=== PATIENT | female | born 1985 ===

== ENCOUNTER 2017-03-09 00:24 | Observation (INO) | payer SELFPAY ==
[2017-03-09] MEDS ORDERED: Sodium Chloride 0.9% 2.5 ML Syringe FLUSH PRN (00:41)
[2017-03-09] MEDS ORDERED: Ondansetron 4 MG/2 ML SDV IVPUSH ONE (00:41)
[2017-03-09] MEDS ORDERED: HYDROmorphone 2 MG/ML Syringe IVPUSH ONE ×2 (00:41→01:19)
[2017-03-09] MEDS ORDERED: Sodium Chloride 0.9% 10 ML Syringe FLUSH PRN (00:41)
[2017-03-09] MEDS ORDERED: Sodium Chloride 0.9% 1,000 ML IV ONE (00:41)
--- NOTE | 2017-03-09 00:45 | EDM.PDOC ---
ED HPI GENERAL MEDICAL PROBLEM - General Chief Complaint: Flank Pain Stated Complaint: RIGHT ABDOMINAL PAIN AND BACK PAIN Time Seen by Provider: 03/09/17 00:36 - History of Present Illness INITIAL COMMENTS - FREE TEXT/NARRATIVE: HISTORY AND PHYSICAL: History of present illness: The patient is a 31-year-old female with no significant GI history and has had a history of ovarian cysts and an IUD in place for contraception and presents with right sided flank and right upper quadrant pain that started approximately 9 PM. Patient said she has had on-and-off pain for the last one month only a couple of times a month and has been trying to eat more healthfully. She says that she had severe pain 2 days ago and had nausea but no vomiting but it seemed to subside so she did not come in for evaluation. At 7 PM this evening the patient had pizza and earlier today she had [employer] which is unusual for her and the pain started at 9 PM and is both in her right upper quadrant and her right flank area. She has no right lower quadrant tenderness or pain no dysuria frequency or hematuria. She has nausea but no vomiting and has not had any diarrhea. Patient also denies any fevers either tonight or throughout the course of this illness. The patient states she does have right back plane but it is not near the CVA and is more in the upper lumbar region. Patient last ate a piece of cake at approximately 11 PM. The patient denies any recent history of heartburn and has no epigastric discomfort or chest pain. Review of systems: As per history of present illness and below otherwise all systems reviewed and negative. Past medical history: As per history of present illness and as reviewed below otherwise noncontributory. Surgical history: As per history of present illness and as reviewed below otherwise noncontributory. Social history: No reported history of drug or alcohol abuse. Family history: As per history of present illness and as reviewed below otherwise noncontributory. Physical exam: Gen.: Well-developed well-nourished female who is nontoxic and vital signs of been reviewed by me HEENT: Atraumatic, normocephalic, pupils reactive, negative for conjunctival pallor or scleral icterus, mucous membranes tacky throat clear, neck supple, nontender, trachea midline Lungs: Clear to auscultation, breath sounds equal bilaterally, chest nontender. Heart: S1S2, regular rate and rhythm no overt murmurs Abdomen: Soft, nondistended, reproducible tenderness in the right upper quadrant without rebound or guarding, bowel sounds are hypoactive Negative for masses or hepatosplenomegaly. Negative for costovertebral tenderness. Pelvis: Stable nontender. Genitourinary: Deferred. Rectal: Deferred. Extremities: Atraumatic, negative for cords or calf pain. Neurovascular unremarkable. Neuro: Awake, alert, oriented. Cranial nerves II through XII unremarkable. Cerebellum unremarkable. Motor and sensory unremarkable throughout. Exam nonfocal. Diagnostics: CBC CMP amylase lipase UA UCG CT scan of the abdomen and pelvis Therapeutics: IV fluids Zofran Dilaudid Levaquin 0235: On reevaluation the patient subjectively states that her pain is improved palpate the right upper quadrant she is still exquisitely tender without rebound or involuntary guarding. The remainder the abdomen is nontender. She is aware of all testing results and is agreeable for observation pending a discussion with the surgeon on-call. 0240: Case was discussed with surgery, Dr. Balderas, who is aware of the case and agrees to observation admission. He requests a dose of Levaquin to be given Impression: Right upper quadrant pain, cholelithiasis rule out cholecystitis Definitive disposition and diagnosis as appropriate pending reevaluation and review of above. right flank Pain Score (Numeric/FACES): 6 - Related Data Allergies Allergy/AdvReac Type Severity Reaction Status Date / Time Penicillins Allergy Anaphylactic Verified 03/09/17 00:38 Shock Home Meds: Home Meds Intra Uterine Device 03/09/17 [History] ED ROS GENERAL - Review of Systems Review Of Systems: ROS reveals no pertinent complaints other than HPI. ED EXAM, GENERAL - Physical Exam Exam: See Below (See dictation) Course - Vital Signs Last Recorded V/S: Last Vital Signs Temp 36.1 C 03/09/17 00:40 Pulse 96 03/09/17 00:40 Resp 18 03/09/17 00:40 BP 128/85 03/09/17 00:40 Pulse Ox 99 03/09/17 00:40 - Orders/Labs/Meds Orders: Active Orders 24 hr Category Date Time Status Patient Status [ADT] Stat ADT 03/09/17 02:41 Ordered Abdomen Pelvis w Cont [CT] Stat Exams 03/09/17 00:41 Taken Lactated Ringers @ 150 MLS/HR(1,000ml) Med 03/09/17 02:45 Ordered Lactated Ringers [Ringers, Lactated] 1,000 ml IV ASDIRECTED Levofloxacin/Dextrose 5%-Water [Levaquin in D5W 500 MG/ Med 03/09/17 02:41 Ordered 100 ML] 500 mg Premix Bag 1 bag IV ONETIME Sodium Chloride 0.9% [Saline Flush] Med 03/09/17 00:41 Active 10 ml FLUSH ASDIRECTED PRN Sodium Chloride 0.9% [Saline Flush] Med 03/09/17 00:41 Active 2.5 ml FLUSH ASDIRECTED PRN Saline Lock Insert [OM.PC] Stat Oth 03/09/17 00:40 Ordered Medication Orders Sodium Chloride (Saline Flush) 10 ml FLUSH ASDIRECTED PRN PRN Reason: Keep Vein Open Last Admin: 03/09/17 01:03 Dose: 10 ml Sodium Chloride (Saline Flush) 2.5 ml FLUSH ASDIRECTED PRN PRN Reason: Keep Vein Open Last Admin: 03/09/17 01:03 Dose: 2.5 ml Labs: Laboratory Tests 03/09/17 03/09/17 03/09/17 Range/Units 00:45 00:45 00:52 WBC 8.88 (4.0-11.0) K/uL RBC 4.77 (4.30-5.90) M/uL Hgb 14.4 (12.0-16.0) g/dL Hct 42.6 (36.0-46.0) % MCV 89.3 (80.0-98.0) fL MCH 30.2 (27.0-32.0) pg MCHC 33.8 (31.0-37.0) g/dL RDW Std Deviation 41.9 (28.0-62.0) fl RDW Coeff of Luciano 13 (11.0-15.0) % Plt Count 280 (150-400) K/uL MPV 9.70 (7.40-12.00) fL Neut % (Auto) 53.9 (48.0-80.0) % Lymph % (Auto) 33.8 (16.0-40.0) % [place] % (Auto) 9.7 (0.0-15.0) % Eos % (Auto) 2.1 (0.0-7.0) % Baso % (Auto) 0.5 (0.0-1.5) % Neut # (Auto) 4.8 (1.4-5.7) K/uL Lymph # (Auto) 3.0 H (0.6-2.4) K/uL [place] # (Auto) 0.9 H (0.0-0.8) K/uL Eos # (Auto) 0.2 (0.0-0.7) K/uL Baso # (Auto) 0.0 (0.0-0.1) K/uL Sodium (136-146) mmol/L Potassium (3.5-5.1) mmol/L Chloride (98-110) mmol/L Carbon Dioxide (21-31) mmol/L BUN (6.0-23.0) mg/dL Creatinine (0.6-1.5) mg/dL Est Cr Clr Drug Dosing mL/min Estimated GFR (MDRD) ml/min Glucose (60-110) mg/dL Calcium (8.8-10.8) mg/dL Total Bilirubin (0.1-1.5) mg/dL AST (5-40) IU/L ALT (8-54) IU/L Alkaline Phosphatase (40-150) Total Protein (6.0-8.0) g/dL Albumin (3.5-5.0) g/dL Globulin (2.0-3.5) g/dL Albumin/Globulin Ratio (1.3-2.8) Amylase (10-90) U/L Lipase (7-80) U/L Urine Color YELLOW Urine Appearance CLEAR Urine pH 7.0 (5.0-8.0) Ur Specific Jackson 1.020 (1.001-1.035) Urine Protein NEGATIVE (NEGATIVE) mg/dL Urine Glucose (UA) NEGATIVE (NEGATIVE) mg/dL Urine Ketones NEGATIVE (NEGATIVE) mg/dL Urine Occult Blood NEGATIVE (NEGATIVE) Urine Nitrite NEGATIVE (NEGATIVE) Urine Bilirubin NEGATIVE (NEGATIVE) Urine Urobilinogen 0.2 (<2.0) EU/dL Ur Leukocyte Esterase NEGATIVE (NEGATIVE) Urine RBC 0-2 (0-2/HPF) Urine WBC 2-4 (0-5/HPF) Ur Epithelial Cells OCCASIONAL (NONE-FEW) Urine Bacteria FEW (NEGATIVE) Urine Mucus FEW (NONE-MOD) Urine HCG, Qual NEGATIVE (NEGATIVE) 03/09/17 Range/Units 00:52 WBC (4.0-11.0) K/uL RBC (4.30-5.90) M/uL Hgb (12.0-16.0) g/dL Hct (36.0-46.0) % MCV (80.0-98.0) fL MCH (27.0-32.0) pg MCHC (31.0-37.0) g/dL RDW Std Deviation (28.0-62.0) fl RDW Coeff of Luciano (11.0-15.0) % Plt Count (150-400) K/uL MPV (7.40-12.00) fL Neut % (Auto) (48.0-80.0) % Lymph % (Auto) (16.0-40.0) % [place] % (Auto) (0.0-15.0) % Eos % (Auto) (0.0-7.0) % Baso % (Auto) (0.0-1.5) % Neut # (Auto) (1.4-5.7) K/uL Lymph # (Auto) (0.6-2.4) K/uL [place] # (Auto) (0.0-0.8) K/uL Eos # (Auto) (0.0-0.7) K/uL Baso # (Auto) (0.0-0.1) K/uL Sodium 138 (136-146) mmol/L Potassium 4.0 (3.5-5.1) mmol/L Chloride 108 (98-110) mmol/L Carbon Dioxide 21 (21-31) mmol/L BUN 11 (6.0-23.0) mg/dL Creatinine 0.8 (0.6-1.5) mg/dL Est Cr Clr Drug Dosing 90.00 mL/min Estimated GFR (MDRD) > 60.0 ml/min Glucose 130 H (60-110) mg/dL Calcium 9.7 (8.8-10.8) mg/dL Total Bilirubin 0.3 (0.1-1.5) mg/dL AST 22 (5-40) IU/L ALT 37 (8-54) IU/L Alkaline Phosphatase 60 (40-150) Total Protein 7.5 (6.0-8.0) g/dL Albumin 4.1 (3.5-5.0) g/dL Globulin 3.4 (2.0-3.5) g/dL Albumin/Globulin Ratio 1.2 L (1.3-2.8) Amylase 59 (10-90) U/L Lipase 50 (7-80) U/L Urine Color Urine Appearance Urine pH (5.0-8.0) Ur Specific Jackson (1.001-1.035) Urine Protein (NEGATIVE) mg/dL Urine Glucose (UA) (NEGATIVE) mg/dL Urine Ketones (NEGATIVE) mg/dL Urine Occult Blood (NEGATIVE) Urine Nitrite (NEGATIVE) Urine Bilirubin (NEGATIVE) Urine Urobilinogen (<2.0) EU/dL Ur Leukocyte Esterase (NEGATIVE) Urine RBC (0-2/HPF) Urine WBC (0-5/HPF) Ur Epithelial Cells (NONE-FEW) Urine Bacteria (NEGATIVE) Urine Mucus (NONE-MOD) Urine HCG, Qual (NEGATIVE) Meds: Medications Generic Name Dose Route Start Last Admin Trade Name Freq PRN Reason Stop Dose Admin Sodium Chloride 10 ml 03/09/17 00:41 03/09/17 01:03 Saline Flush FLUSH 10 ml ASDIRECTED PRN Administration Keep Vein Open Sodium Chloride 2.5 ml 03/09/17 00:41 03/09/17 01:03 Saline Flush FLUSH 2.5 ml ASDIRECTED PRN Administration Keep Vein Open Discontinued Medications Generic Name Dose Route Start Last Admin Trade Name Freq PRN Reason Stop Dose Admin Hydromorphone HCl 1 mg 03/09/17 00:41 03/09/17 01:02 Dilaudid IVPUSH 03/09/17 00:42 1 mg ONETIME ONE Administration Hydromorphone HCl 1 mg 03/09/17 01:19 03/09/17 01:27 Dilaudid IVPUSH 03/09/17 01:20 1 mg ONETIME ONE Administration Sodium Chloride 1,000 mls @ 999 mls/hr 03/09/17 00:41 03/09/17 01:00 Normal Saline IV 03/09/17 01:41 999 mls/hr STAT ONE Administration Iopamidol 100 ml 03/09/17 01:50 03/09/17 01:51 Isovue Multipack-370 (76%) IVPUSH 03/09/17 01:51 100 ml ONETIME STA Administration Ondansetron HCl 4 mg 03/09/17 00:41 03/09/17 01:02 Zofran IVPUSH 03/09/17 00:42 4 mg ONETIME ONE Administration Departure - Departure Time of Disposition: 02:44 Disposition: Refer to Observation Condition: Good, Fair Clinical Impression: Abdominal pain Qualifiers: Abdominal location: right upper quadrant Qualified Code(s): R10.11 - Right upper quadrant pain Cholelithiasis Qualifiers: Cholelithiasis location: gallbladder Cholecystitis presence: with cholecystitis Cholecystitis acuity: acute Biliary obstruction: without biliary obstruction Qualified Code(s): K80.00 - Calculus of gallbladder with acute cholecystitis without obstruction - Discharge Information Referrals: PCP,None [Primary Care Provider] - Forms: ED Department Discharge - My Orders Last 24 Hours: My Active Orders 03/09/17 00:40 Saline Lock Insert [OM.PC] Stat 03/09/17 00:41 Abdomen Pelvis w Cont [CT] Stat Sodium Chloride 0.9% [Saline Flush] 10 ml FLUSH ASDIRECTED PRN Sodium Chloride 0.9% [Saline Flush] 2.5 ml FLUSH ASDIRECTED PRN 03/09/17 02:41 Patient Status [ADT] Stat Levofloxacin/Dextrose 5%-Water [Levaquin in D5W 500 MG/100 ML] 500 mg Premix Bag 1 bag IV ONETIME 03/09/17 02:45 Lactated Ringers @ 150 MLS/HR(1,000ml) Lactated Ringers [Ringers, Lactated] 1, 000 ml IV ASDIRECTED - Assessment/Plan Last 24 Hours: My Active Orders 03/09/17 00:40 Saline Lock Insert [OM.PC] Stat 03/09/17 00:41 Abdomen Pelvis w Cont [CT] Stat Sodium Chloride 0.9% [Saline Flush] 10 ml FLUSH ASDIRECTED PRN Sodium Chloride 0.9% [Saline Flush] 2.5 ml FLUSH ASDIRECTED PRN 03/09/17 02:41 Patient Status [ADT] Stat Levofloxacin/Dextrose 5%-Water [Levaquin in D5W 500 MG/100 ML] 500 mg Premix Bag 1 bag IV ONETIME 03/09/17 02:45 Lactated Ringers @ 150 MLS/HR(1,000ml) Lactated Ringers [Ringers, Lactated] 1, 000 ml IV ASDIRECTED
[2017-03-09 01:22] LABS: CHLORIDE,CL 108 mmol/L (98-110); SODIUM,NA 138 mmol/L (136-146)
[2017-03-09] MEDS ORDERED: Iopamidol 755 MG/ML 500 ML Multipack Bottle IVPUSH STA (01:50)
[2017-03-09] MEDS ORDERED: Levofloxacin/Dextrose 5%-Water 500 MG in Premix Bag 1 BAG IV ONE (02:41)
[2017-03-09] MEDS ORDERED: Lactated Ringers 1,000 ML IV SCH ×2 (02:45→03:30)
[2017-03-09] MEDS ORDERED: Ondansetron 4 MG/2 ML SDV IVPUSH PRN (03:17)
[2017-03-09] MEDS: Morphine 2 MG/ML Syringe IVPUSH PRN ×2 (04:13→08:14)
[2017-03-09] MEDS: Pantoprazole 40 MG in Sodium Chloride 0.9% 10 ML IVPUSH SCH ×2 (04:13→08:27)
[2017-03-09] MEDS ORDERED: Nicotine 14 MG/24 Hr Patch TRDERM SCH (04:30)
[2017-03-09 06:39] LABS: CHLORIDE,CL 108 mmol/L (98-110); SODIUM,NA 138 mmol/L (136-146)
[2017-03-09] MEDS ORDERED: Acetaminophen/oxyCODONE 325-5 MG Tab PO ONE (11:05)
--- NOTE | 2017-03-09 11:11 | PCM.SN ---
- Free Text/Narrative Note: pt seen, chart reviewed; home on abx and pain meds; fu as scheduled; [id number]
--- NOTE | 2017-03-09 11:53 | CONS ---
DATE OF CONSULTATION: 03/09/2017 DATE OF : 1985 PRIMARY CARE PHYSICIAN: None PCP Consult from Dr. Mary Beth Naik. CONCERNING QUESTION: Abdominal pain. HISTORY OF PRESENT ILLNESS: The patient is a 31-year-old lady known to have gallstone and had a piece of large pizza and the pain is 10/10, which drove her to the emergency room. The patient remarked that she has known history of gallstones and she has this kind of pain on and off for many weeks and was getting worse 2 days ago. Every time, it is postprandial in nature, epigastrium, radiated to the back through the right flank and through the right shoulder. Denied jaundice, dark urine, white stool, and blood in her stool. PAST MEDICAL HISTORY: Significant for no diabetes, [place], CVA, or hypertension. PAST SURGICAL HISTORY: Normal vaginal delivery x2. No other abdominal surgery. ALLERGIES: Please refer to nursing note for detail. MEDICATIONS: Please refer to nursing note for detail. PHYSICAL EXAMINATION: GENERAL: A very pleasant lady in no acute distress. HEENT: Normocephalic, atraumatic. Sclerae anicteric. LUNGS: Clear to auscultation. HEART: Regular rate and rhythm. ABDOMEN: Soft, nondistended. No pulsating, tender, midline abdominal structure. A small umbilical hernia noted. Skin, intact. Tender at the right upper quadrant. No rebound tenderness. No surgical scar. LABORATORY DATA: Upon consultation, white count of 7. BUN is 9, creatinine is 0.8, and glucose is 118. Total bilirubin is 0.4. AST and ALT at 20 and 33 within normal limits. Alkaline phosphatase is 50. Amylase and lipase are normal at 49 and 39. UA shows no signs infection. Gallbladder shows stone. IMPRESSION: Symptomatic cholelithiasis, will benefit from a modified diet, avoid greasy fatty foods, and followup in 1-2 weeks in my office. The patient requested to follow up in 6 weeks because of her home situation and that is all right. Gave the patient the idea about gallstone, could be pushed out with greasy food and may require more than one surgery, the patient is aware and nursing staff will set up for appointment in 6 weeks. For the time being, the patient will be treated with antibiotic, pain medication, and modified diet. The patient is aware. As always, thank you for the kind referral. LIARAMA / MODL /[id number]
[2017-03-10] MEDS ORDERED: Levofloxacin/Dextrose 5%-Water 750 MG in Premix Bag 1 BAG IV SCH (03:00)
--- NOTE | 2017-03-10 11:42 | CT ---
EXAM DATE: 03/09/17 PATIENT'S AGE: 31 Patient: MADAN HOLMAN Facility: [place], [place] : 1985 Study: CT Abdomen/Pelvis [id number] 1:54:12 AM Ordering Physician: BETTY Final Report: INDICATION: Abdominal pain. TECHNIQUE: CT abdomen and pelvis acquired with 100 mL of Isovue 370 IV contrast. COMPARISON: None. FINDINGS: Lower chest: Unremarkable. Liver: Unremarkable. Spleen: 2 cm low density lesion is of doubtful clinical significance. Pancreas: Unremarkable. Gallbladder and bile ducts: Cholelithiasis. Mild wall thickening and enhancement of the gallbladder. The common bile duct measures 6 mm. No definite bile duct stone demonstrated. Kidneys: Too small to characterize low-density lesion on the right likely represents a cyst. Bilateral kidneys are otherwise unremarkable. No hydronephrosis. A Adrenal glands: Unremarkable. GI tract: Unremarkable. Appendix is normal. No free air or free fluid. Vascular structures: Unremarkable. Lymph nodes: Unremarkable. Pelvic Organs: Intrauterine device appears appropriately positioned. Bladder and bilateral adnexal regions are unremarkable. Bones: No acute abnormality. IMPRESSION: Cholelithiasis with additional findings worrisome for early acute cholecystitis. Dictated by Sigifredo White MD @ 03/09/2017 2:24:03 AM Dictated by: Sigifredo White MD @ 03/09/2017 02:24:26 ----- ADDENDUM ----- IMPRESSION: Discussed with Dr. Naik at approximately 2:30 a.m. on 03/09/2017. Dictated by Sigifredo White MD @ Mar 09 2017 7:05AM (Electronic Signature) Report Signed by Proxy. JOSE G
== END 2017-03-09 11:50 | disposition home or self-care (01) ==
LOC: MW.ED 00:24 → MW.MS 02:41
PROVIDERS: ADMIT Surgery; ATTEND Surgery
DX: K80.20 Calculus of gallbladder without cholecystitis without obstruction (principal)
CPT/HCPCS: 36415; 74177; 80053; 81001; 81025; 82150; 83690; 85025; 96361; 96365; 96368; 96375; 96376; 99285; A9270; C9113; G0378; J1170; J1956; J2270; J2405; J7040; J7120; Q9967; 99284

== ENCOUNTER 2017-03-13 05:23 | Emergency (ER) | payer SELFPAY ==
[2017-03-13] MEDS ORDERED: Ketorolac 30 MG/ML SDV IVPUSH ONE (05:32)
[2017-03-13] MEDS ORDERED: Ondansetron 4 MG/2 ML SDV IVPUSH ONE (05:32)
[2017-03-13] MEDS ORDERED: Sodium Chloride 0.9% 1,000 ML IV SCH (05:45)
[2017-03-13] MEDS ORDERED: Sodium Chloride 0.9% 250 ML IV SCH (05:45)
[2017-03-13 06:10] LABS: CHLORIDE,CL 107 mmol/L (98-110); SODIUM,NA 135 mmol/L (136-146)
--- NOTE | 2017-03-13 07:06 | EDM.PDOC ---
ED HPI GENERAL MEDICAL PROBLEM - General Chief Complaint: Abdominal Pain Stated Complaint: ABDOMINAL PAIN, GALLBLADDER ISSUES Time Seen by Provider: 03/13/17 06:55 - History of Present Illness INITIAL COMMENTS - FREE TEXT/NARRATIVE: HISTORY AND PHYSICAL: History of present illness: Patient 31-year-old white female was seen on 10:15 and diagnosed with cholecystitis she is put on Levaquin she was seen by general surgery in the emergency department Dr. Balderas who returns today with abdominal pain nausea denies vomiting denies fever or chills states pain is been worsening. Review of systems: As per history of present illness and below otherwise all systems reviewed and negative. Past medical history: As per history of present illness and as reviewed below otherwise noncontributory. Surgical history: As per history of present illness and as reviewed below otherwise noncontributory. Social history: No reported history of drug or alcohol abuse. Family history: As per history of present illness and as reviewed below otherwise noncontributory. Physical exam: HEENT: Atraumatic, normocephalic, pupils reactive, negative for conjunctival pallor or scleral icterus, mucous membranes moist, throat clear, neck supple, nontender, trachea midline. Lungs: Clear to auscultation, breath sounds equal bilaterally, chest nontender. Heart: S1S2, regular, negative for clicks, rubs, or JVD. Abdomen: Soft, nondistended, localized tenderness right upper quadrant with guarding.. Negative for masses or hepatosplenomegaly. Negative for costovertebral tenderness. Pelvis: Stable nontender. Genitourinary: Deferred. Rectal: Deferred. Extremities: Atraumatic, negative for cords or calf pain. Neurovascular unremarkable. Neuro: Awake, alert, oriented. Cranial nerves II through XII unremarkable. Cerebellum unremarkable. Motor and sensory unremarkable throughout. Exam nonfocal. Diagnostics: CBC CMP UA ultrasound right upper quadrant Therapeutics: Normal saline 1 L bolus and Toradol 30 mg IV Zofran 4 mg IV Impression: #1 abdominal pain/cholelithiasis Definitive disposition and diagnosis as appropriate pending reevaluation and review of above. Treatments METHOD CONSULTANT: Reports: IV/IO Abdomen Pain Score (Numeric/FACES): 8 - Related Data Allergies Allergy/AdvReac Type Severity Reaction Status Date / Time Penicillins Allergy Anaphylactic Verified 03/13/17 05:27 Shock Home Meds: Home Meds Acetaminophen/oxyCODONE [Percocet 325-5 MG] 1 tab PO Q6H PRN #30 tablet [Rx] Intra Uterine Device 03/09/17 [History] Levofloxacin [Levaquin] 750 mg PO DAILY 4 Days #4 tablet 03/09/17 [Rx] Past Medical History HEENT History: Reports: None, 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) Other HEENT History: wears contacts Cardiovascular History: Reports: None Respiratory History: Reports: None Gastrointestinal History: Reports: Cholelithiasis Genitourinary History: Reports: UTI, Recurrent 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: , 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) Other OB/BYN History: IUD Musculoskeletal History: Reports: None Neurological History: Reports: Migraines Psychiatric History: Reports: Anxiety, Depression Endocrine/Metabolic History: Reports: Hypothyroidism Hematologic History: Reports: None Immunologic History: Reports: None Oncologic (Cancer) History: Reports: None Dermatologic History: Reports: None - Infectious Disease History Infectious Disease History: Reports: Chicken Pox - Past Surgical History Female Surgical History: Reports: None Other Female Surgeries/Procedures: ovarian cyst Musculoskeletal Surgical History: Reports: None Social & Family History - Family History Family Medical History: Noncontributory - Tobacco Use Smoking Status *Q: Current Every Day Smoker Years of Tobacco use: 10 Packs/Tins Daily: 1 Second Hand Smoke Exposure: No - Caffeine Use Caffeine Use: Reports: Coffee, Soda - Recreational Drug Use Recreational Drug Use: No ED ROS GENERAL - Review of Systems Review Of Systems: ROS reveals no pertinent complaints other than HPI. ED EXAM, GENERAL - Physical Exam Exam: See Below (See dictation) Course - Vital Signs Last Recorded V/S: Last Vital Signs Temp 36.3 C 03/13/17 05:27 Pulse 102 H 03/13/17 05:27 Resp 18 03/13/17 05:27 BP 139/87 03/13/17 05:27 Pulse Ox 98 03/13/17 05:27 - Orders/Labs/Meds Orders: Active Orders 24 hr Category Date Time Status Abdomen Ltd [US] Stat Exams 03/13/17 05:32 Taken Sodium Chloride 0.9% [Normal Saline] 1,000 ml Med 03/13/17 05:45 Active IV ASDIRECTED Medication Orders Sodium Chloride (Normal Saline) 1,000 mls @ 999 mls/hr IV ASDIRECTED ELISEO Last Admin: 03/13/17 05:45 Dose: 999 mls/hr Labs: Laboratory Tests 03/13/17 03/13/17 03/13/17 Range/Units 05:32 05:32 05:36 WBC 8.57 (4.0-11.0) K/uL RBC 4.60 (4.30-5.90) M/uL Hgb 13.8 (12.0-16.0) g/dL Hct 40.5 (36.0-46.0) % MCV 88.0 (80.0-98.0) fL MCH 30.0 (27.0-32.0) pg MCHC 34.1 (31.0-37.0) g/dL RDW Std Deviation 43.0 (28.0-62.0) fl RDW Coeff of Luciano 13 (11.0-15.0) % Plt Count 237 (150-400) K/uL MPV 9.80 (7.40-12.00) fL Neut % (Auto) 62.5 (48.0-80.0) % Lymph % (Auto) 28.9 (16.0-40.0) % [place] % (Auto) 6.8 (0.0-15.0) % Eos % (Auto) 1.4 (0.0-7.0) % Baso % (Auto) 0.4 (0.0-1.5) % Neut # (Auto) 5.4 (1.4-5.7) K/uL Lymph # (Auto) 2.5 H (0.6-2.4) K/uL [place] # (Auto) 0.6 (0.0-0.8) K/uL Eos # (Auto) 0.1 (0.0-0.7) K/uL Baso # (Auto) 0.0 (0.0-0.1) K/uL Nucleated RBC % 0.0 /100WBC Nucleated RBCs # 0 K/uL Sodium 135 L (136-146) mmol/L Potassium 3.4 L (3.5-5.1) mmol/L Chloride 107 (98-110) mmol/L Carbon Dioxide 22 (21-31) mmol/L BUN 9 (6.0-23.0) mg/dL Creatinine 0.8 (0.6-1.5) mg/dL Est Cr Clr Drug Dosing 90.00 mL/min Estimated GFR (MDRD) > 60.0 ml/min Glucose 146 H (60-110) mg/dL Calcium 9.1 (8.8-10.8) mg/dL Total Bilirubin 0.4 (0.1-1.5) mg/dL AST 28 (5-40) IU/L ALT 45 (8-54) IU/L Alkaline Phosphatase 49 (40-150) Total Protein 6.7 (6.0-8.0) g/dL Albumin 3.7 (3.5-5.0) g/dL Globulin 3.0 (2.0-3.5) g/dL Albumin/Globulin Ratio 1.2 L (1.3-2.8) Urine Color YELLOW Urine Appearance SLT CLOUDY Urine pH 5.5 (5.0-8.0) Ur Specific [place] >= 1.030 (1.001-1.035) Urine Protein 100 (NEGATIVE) mg/dL Urine Glucose (UA) NEGATIVE (NEGATIVE) mg/dL Urine Ketones TRACE H (NEGATIVE) mg/dL Urine Occult Blood NEGATIVE (NEGATIVE) Urine Nitrite NEGATIVE (NEGATIVE) Urine Bilirubin NEGATIVE (NEGATIVE) Urine Urobilinogen 0.2 (<2.0) EU/dL Ur Leukocyte Esterase NEGATIVE (NEGATIVE) Urine RBC 0-2 (0-2/HPF) Urine WBC 4-6 (0-5/HPF) Ur Epithelial Cells MODERATE (NONE-FEW) Urine Bacteria FEW (NEGATIVE) Urine Mucus MODERATE (NONE-MOD) Urine HCG, Qual (NEGATIVE) 03/13/17 Range/Units 05:36 WBC (4.0-11.0) K/uL RBC (4.30-5.90) M/uL Hgb (12.0-16.0) g/dL Hct (36.0-46.0) % MCV (80.0-98.0) fL MCH (27.0-32.0) pg MCHC (31.0-37.0) g/dL RDW Std Deviation (28.0-62.0) fl RDW Coeff of [place]iano (11.0-15.0) % Plt Count (150-400) K/uL MPV (7.40-12.00) fL Neut % (Auto) (48.0-80.0) % Lymph % (Auto) (16.0-40.0) % [place] % (Auto) (0.0-15.0) % Eos % (Auto) (0.0-7.0) % Baso % (Auto) (0.0-1.5) % Neut # (Auto) (1.4-5.7) K/uL Lymph # (Auto) (0.6-2.4) K/uL [place] # (Auto) (0.0-0.8) K/uL Eos # (Auto) (0.0-0.7) K/uL Baso # (Auto) (0.0-0.1) K/uL Nucleated RBC % /100WBC Nucleated RBCs # K/uL Sodium (136-146) mmol/L Potassium (3.5-5.1) mmol/L Chloride (98-110) mmol/L Carbon Dioxide (21-31) mmol/L BUN (6.0-23.0) mg/dL Creatinine (0.6-1.5) mg/dL Est Cr Clr Drug Dosing mL/min Estimated GFR (MDRD) ml/min Glucose (60-110) mg/dL Calcium (8.8-10.8) mg/dL Total Bilirubin (0.1-1.5) mg/dL AST (5-40) IU/L ALT (8-54) IU/L Alkaline Phosphatase (40-150) Total Protein (6.0-8.0) g/dL Albumin (3.5-5.0) g/dL Globulin (2.0-3.5) g/dL Albumin/Globulin Ratio (1.3-2.8) Urine Color Urine Appearance Urine pH (5.0-8.0) Ur Specific [place] (1.001-1.035) Urine Protein (NEGATIVE) mg/dL Urine Glucose (UA) (NEGATIVE) mg/dL Urine Ketones (NEGATIVE) mg/dL Urine Occult Blood (NEGATIVE) Urine Nitrite (NEGATIVE) Urine Bilirubin (NEGATIVE) Urine Urobilinogen (<2.0) EU/dL Ur Leukocyte Esterase (NEGATIVE) Urine RBC (0-2/HPF) Urine WBC (0-5/HPF) Ur Epithelial Cells (NONE-FEW) Urine Bacteria (NEGATIVE) Urine Mucus (NONE-MOD) Urine HCG, Qual NEGATIVE (NEGATIVE) Meds: Medications Generic Name Dose Route Start Last Admin Trade Name Carla PRN Reason Stop Dose Admin Sodium Chloride 1,000 mls @ 999 mls/hr 03/13/17 05:45 03/13/17 05:45 Normal Saline IV 999 mls/hr ASDIRECTED ELISEO Administration Discontinued Medications Generic Name Dose Route Start Last Admin Trade Name Carla PRN Reason Stop Dose Admin Sodium Chloride 250 mls @ 999 mls/hr 03/13/17 05:45 Normal Saline IV ASDIRECTED ELISEO Ketorolac Tromethamine 30 mg 03/13/17 05:32 03/13/17 05:43 Toradol IVPUSH 03/13/17 05:33 30 mg ONETIME ONE Administration Ondansetron HCl 4 mg 03/13/17 05:32 03/13/17 05:43 Zofran IVPUSH 03/13/17 05:33 4 mg ONETIME ONE Administration Departure - Departure Time of Disposition: 07:07 Disposition: Refer to Observation Condition: Good Clinical Impression: Abdominal pain Qualifiers: Abdominal location: right upper quadrant Qualified Code(s): R10.11 - Right upper quadrant pain Cholelithiasis Qualifiers: Cholelithiasis location: gallbladder Cholecystitis presence: with cholecystitis Cholecystitis acuity: acute Biliary obstruction: without biliary obstruction Qualified Code(s): K80.00 - Calculus of gallbladder with acute cholecystitis without obstruction - Discharge Information Referrals: PCP,None [Primary Care Provider] - - My Orders Last 24 Hours: My Active Orders 03/13/17 05:32 Abdomen Ltd [US] Stat 03/13/17 05:45 Sodium Chloride 0.9% [Normal Saline] 1,000 ml IV ASDIRECTED - Assessment/Plan Last 24 Hours: My Active Orders 03/13/17 05:32 Abdomen Ltd [US] Stat 03/13/17 05:45 Sodium Chloride 0.9% [Normal Saline] 1,000 ml IV ASDIRECTED
--- NOTE | 2017-03-13 10:58 | US ---
EXAM DATE: 03/13/17 PATIENT'S AGE: 31 Patient: MADAN HOLMAN Facility: [place], [place] Site . Site : 1985 Study: US Abdomen [id number] 6:35:27 AM Ordering Physician: Doctor Lawrence Final Report: INDICATION: Right upper quadrant pain COMPARISON: none TECHNIQUE: Real time mosquera scale imaging and color Doppler analysis was performed of the right upper quadrant. FINDINGS: The patient`s liver is of normal size and has uniform echogenicity. There is a normal appearance of the hepatic IVC and proximal abdominal aorta. There is no evidence of ascites. The pancreatic body appears normal. The pancreatic head and tail were obscured by bowel gas. Stones are noted within the gallbladder lumen measuring up to 17 mm in size. However, there is no evidence of edema within the gallbladder wall and the hollock maker performing the exam, noted that the patient was not focally tender over the gallbladder. The gallbladder wall measures 1.8 mm in thickness. The common bile duct is generous and measures 7.5 mm in diameter at the level of the miki hepatis. The distal duct and pancreatic head were obscured. The right kidney measures cm in length. There is no evidence of a stone or hydronephrosis within the right kidney. IMPRESSION: Cholelithiasis and mild dilation of the common bile duct which would raise a concern for potential choledocholithiasis. No evidence of acute inflammation within the gallbladder wall. Dictated by Deuce Finn MD @ Mar 13 2017 6:36AM (Electronic Signature) Report Signed by Proxy. JOSE G
--- NOTE | 2017-03-13 12:21 | PCM.CONS ---
H&P History of Present Illness - General Date of Service: 03/13/17 Admit Problem/Dx: Admission Diagnosis/Problem Admission Diagnosis/Problem Abdominal pain Source of Information: Patient History Limitations: Reports: No Limitations - History of Present Illness Onset of Symptoms: Reports: Today Location: Reports: Abdomen Quality: Reports: Pressure, Stabbing Severity: Moderate Improves with: Reports: Rest Worsens with: Reports: None Context: Reports: Sick Contact Associated Symptoms: Reports: Nausea/Vomiting Abdomen Pain Score (Numeric/FACES): 6 - Related Data Allergies/Adverse Reactions: Allergies Allergy/AdvReac Type Severity Reaction Status Date / Time Penicillins Allergy Anaphylactic Verified 03/13/17 05:27 Shock Home Medications: Home Meds Acetaminophen/oxyCODONE [Percocet 325-5 MG] 1 tab PO Q6H PRN #30 tablet [Rx] Intra Uterine Device 03/09/17 [History] Levofloxacin [Levaquin] 750 mg PO DAILY 4 Days #4 tablet 03/09/17 [Rx] Past Medical History HEENT History: Reports: None, 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) Other HEENT History: wears contacts Cardiovascular History: Reports: None Respiratory History: Reports: None Gastrointestinal History: Reports: Cholelithiasis Genitourinary History: Reports: UTI, Recurrent 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: , 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) Other OB/BYN History: IUD Musculoskeletal History: Reports: None Neurological History: Reports: Migraines Psychiatric History: Reports: Anxiety, Depression Endocrine/Metabolic History: Reports: Hypothyroidism Hematologic History: Reports: None Immunologic History: Reports: None Oncologic (Cancer) History: Reports: None Dermatologic History: Reports: None - Infectious Disease History Infectious Disease History: Reports: Chicken Pox - Past Surgical History Female Surgical History: Reports: None Other Female Surgeries/Procedures: ovarian cyst Musculoskeletal Surgical History: Reports: None Social & Family History - Family History Family Medical History: Noncontributory - Tobacco Use Smoking Status *Q: Current Every Day Smoker Years of Tobacco use: 10 Packs/Tins Daily: 1 Second Hand Smoke Exposure: No - Caffeine Use Caffeine Use: Reports: Coffee, Soda - Recreational Drug Use Recreational Drug Use: No H&P Review of Systems - Review of Systems: Review Of Systems: See Below General: Denies: Fever, Chills HEENT: Reports: No Symptoms Pulmonary: Denies: Shortness of Breath, Wheezing, Cough Cardiovascular: Denies: Chest Pain Gastrointestinal: Reports: Abdominal Pain, Anorexia, Decreased Appetite. Denies : Black Stool, Bloody Stool, Constipation, Diarrhea Genitourinary: Reports: No Symptoms Musculoskeletal: Reports: No Symptoms Skin: Reports: No Symptoms Psychiatric: Reports: No Symptoms Neurological: Reports: No Symptoms Hematologic/Lymphatic: Reports: No Symptoms Immunologic: Reports: No Symptoms Exam - Exam Exam: See Below - Vital Signs Vital Signs: Last Vital Signs Temp 97.4 F 03/13/17 05:27 Pulse 69 03/13/17 08:42 Resp 18 03/13/17 08:42 BP 101/64 03/13/17 08:42 Pulse Ox 98 03/13/17 08:42 Weight: 178 lb - Exam General: Alert, Oriented, Cooperative, Mild Distress HEENT: Conjunctiva Clear. No: Scleral Icterus Neck: Supple, Trachea Midline Lungs: Clear to Auscultation Cardiovascular: Regular Rate, Regular Rhythm. No: Tachycardia GI/Abdominal Exam: Normal Bowel Sounds, Soft, No Organomegaly, No Distention, No Mass, Distended, Tender (minimal RUQ tenderness). No: Guarding, Rigid, Rebound, Hernia, Mass (Female) Exam: Deferred Rectal (Female) Exam: Deferred Extremities: Normal Inspection, Normal Range of Motion Peripheral Pulses: 4+: Posterior Tibial (L), Posterior Tibial (R), Dorsalis Pedis (L), Dorsalis Pedis (R) Skin: Warm, Dry, Intact Neurological: Cranial Nerves Intact, Reflexes Equal Bilateral Psychiatric: Alert, Normal Affect, Normal Mood - Patient Data Lab Results Last 24 hrs: Laboratory Results - last 24 hr 03/13/17 03/13/17 03/13/17 Range/Units 05:32 05:32 05:36 WBC 8.57 (4.0-11.0) K/uL RBC 4.60 (4.30-5.90) M/uL Hgb 13.8 (12.0-16.0) g/dL Hct 40.5 (36.0-46.0) % MCV 88.0 (80.0-98.0) fL MCH 30.0 (27.0-32.0) pg MCHC 34.1 (31.0-37.0) g/dL RDW Std Deviation 43.0 (28.0-62.0) fl RDW Coeff of Luciano 13 (11.0-15.0) % Plt Count 237 (150-400) K/uL MPV 9.80 (7.40-12.00) fL Neut % (Auto) 62.5 (48.0-80.0) % Lymph % (Auto) 28.9 (16.0-40.0) % [place] % (Auto) 6.8 (0.0-15.0) % Eos % (Auto) 1.4 (0.0-7.0) % Baso % (Auto) 0.4 (0.0-1.5) % Neut # (Auto) 5.4 (1.4-5.7) K/uL Lymph # (Auto) 2.5 H (0.6-2.4) K/uL [place] # (Auto) 0.6 (0.0-0.8) K/uL Eos # (Auto) 0.1 (0.0-0.7) K/uL Baso # (Auto) 0.0 (0.0-0.1) K/uL Nucleated RBC % 0.0 /100WBC Nucleated RBCs # 0 K/uL Sodium 135 L (136-146) mmol/L Potassium 3.4 L (3.5-5.1) mmol/L Chloride 107 (98-110) mmol/L Carbon Dioxide 22 (21-31) mmol/L BUN 9 (6.0-23.0) mg/dL Creatinine 0.8 (0.6-1.5) mg/dL Est Cr Clr Drug Dosing 90.00 mL/min Estimated GFR (MDRD) > 60.0 ml/min Glucose 146 H (60-110) mg/dL Calcium 9.1 (8.8-10.8) mg/dL Total Bilirubin 0.4 (0.1-1.5) mg/dL AST 28 (5-40) IU/L ALT 45 (8-54) IU/L Alkaline Phosphatase 49 (40-150) Total Protein 6.7 (6.0-8.0) g/dL Albumin 3.7 (3.5-5.0) g/dL Globulin 3.0 (2.0-3.5) g/dL Albumin/Globulin Ratio 1.2 L (1.3-2.8) Urine Color YELLOW Urine Appearance SLT CLOUDY Urine pH 5.5 (5.0-8.0) Ur Specific [place] >= 1.030 (1.001-1.035) Urine Protein 100 (NEGATIVE) mg/dL Urine Glucose (UA) NEGATIVE (NEGATIVE) mg/dL Urine Ketones TRACE H (NEGATIVE) mg/dL Urine Occult Blood NEGATIVE (NEGATIVE) Urine Nitrite NEGATIVE (NEGATIVE) Urine Bilirubin NEGATIVE (NEGATIVE) Urine Urobilinogen 0.2 (<2.0) EU/dL Ur Leukocyte Esterase NEGATIVE (NEGATIVE) Urine RBC 0-2 (0-2/HPF) Urine WBC 4-6 (0-5/HPF) Ur Epithelial Cells MODERATE (NONE-FEW) Urine Bacteria FEW (NEGATIVE) Urine Mucus MODERATE (NONE-MOD) Urine HCG, Qual (NEGATIVE) 03/13/17 Range/Units 05:36 WBC (4.0-11.0) K/uL RBC (4.30-5.90) M/uL Hgb (12.0-16.0) g/dL Hct (36.0-46.0) % MCV (80.0-98.0) fL MCH (27.0-32.0) pg MCHC (31.0-37.0) g/dL RDW Std Deviation (28.0-62.0) fl RDW Coeff of Luciano (11.0-15.0) % Plt Count (150-400) K/uL MPV (7.40-12.00) fL Neut % (Auto) (48.0-80.0) % Lymph % (Auto) (16.0-40.0) % [place] % (Auto) (0.0-15.0) % Eos % (Auto) (0.0-7.0) % Baso % (Auto) (0.0-1.5) % Neut # (Auto) (1.4-5.7) K/uL Lymph # (Auto) (0.6-2.4) K/uL [place] # (Auto) (0.0-0.8) K/uL Eos # (Auto) (0.0-0.7) K/uL Baso # (Auto) (0.0-0.1) K/uL Nucleated RBC % /100WBC Nucleated RBCs # K/uL Sodium (136-146) mmol/L Potassium (3.5-5.1) mmol/L Chloride (98-110) mmol/L Carbon Dioxide (21-31) mmol/L BUN (6.0-23.0) mg/dL Creatinine (0.6-1.5) mg/dL Est Cr Clr Drug Dosing mL/min Estimated GFR (MDRD) ml/min Glucose (60-110) mg/dL Calcium (8.8-10.8) mg/dL Total Bilirubin (0.1-1.5) mg/dL AST (5-40) IU/L ALT (8-54) IU/L Alkaline Phosphatase (40-150) Total Protein (6.0-8.0) g/dL Albumin (3.5-5.0) g/dL Globulin (2.0-3.5) g/dL Albumin/Globulin Ratio (1.3-2.8) Urine Color Urine Appearance Urine pH (5.0-8.0) Ur Specific [place] (1.001-1.035) Urine Protein (NEGATIVE) mg/dL Urine Glucose (UA) (NEGATIVE) mg/dL Urine Ketones (NEGATIVE) mg/dL Urine Occult Blood (NEGATIVE) Urine Nitrite (NEGATIVE) Urine Bilirubin (NEGATIVE) Urine Urobilinogen (<2.0) EU/dL Ur Leukocyte Esterase (NEGATIVE) Urine RBC (0-2/HPF) Urine WBC (0-5/HPF) Ur Epithelial Cells (NONE-FEW) Urine Bacteria (NEGATIVE) Urine Mucus (NONE-MOD) Urine HCG, Qual NEGATIVE (NEGATIVE) Result Diagrams: 03/13/17 05:32 03/13/17 05:32 Consult PN Assessment/Plan Procedures: Procedures ASSAY OF AMYLASE (03/09/17) ASSAY OF LIPASE (03/09/17) COMPLETE CBC W/AUTO DIFF WBC (03/09/17) COMPREHEN METABOLIC PANEL (03/09/17) CT ABD & PELV W/CONTRAST (03/09/17) EMERGENCY DEPT VISIT (03/09/17) HYDRATE IV INFUSION ADD-ON (03/09/17) ROUTINE VENIPUNCTURE (03/09/17) THER/DIAG CONCURRENT INF (03/09/17) THER/PROPH/DIAG IV INF INIT (03/09/17) TX/PRO/DX INJ NEW DRUG ADDON (03/09/17) TX/PRO/DX INJ SAME DRUG ELECTRICIAN [employer] (03/09/17) URINALYSIS AUTO W/SCOPE (03/09/17) URINE TEST (03/09/17) (1) Biliary colic SNOMED Code(s): 06497424 Code(s): K80.50 - CALCULUS OF BILE DUCT W/O CHOLANGITIS OR CHOLECYST W/O OBST (2) Cholelithiasis SNOMED Code(s): 351725172 Code(s): K80.20 - CALCULUS OF GALLBLADDER W/O CHOLECYSTITIS W/O OBSTRUCTION Qualifiers: Cholelithiasis location: gallbladder Cholecystitis presence: with cholecystitis Cholecystitis acuity: acute Biliary obstruction: without biliary obstruction Qualified Code(s): K80.00 - Calculus of gallbladder with acute cholecystitis without obstruction Problem List Initiated/Reviewed/Updated: Yes Plan: Patient is currently feeling much better. She is concerned about her financial situation and will be getting health insurance in the near future. She would like to hold off. I gave her the option of seeing me in the office next week or Dr. Balderas. She is going to contact our office and we will get her scheduled for elective cholecystectomy.
== END 2017-03-13 08:42 | disposition home or self-care (01) ==
LOC: MW.ED 05:23
DX: K80.00 Calculus of gallbladder with acute cholecystitis without obstruction (principal); F17.210 Nicotine dependence, cigarettes, uncomplicated; Z88.0 Allergy status to penicillin
CPT/HCPCS: 76705; 80053; 81001; 81025; 85025; 96361; 96374; 96375; 99285; J1885; J2405; J7040; 99284

== ENCOUNTER 2017-03-26 15:15 | Emergency (ER) | payer SELFPAY ==
--- NOTE | 2017-03-26 15:18 | EDM.PDOC ---
ED HPI GENERAL MEDICAL PROBLEM - General Stated Complaint: SYNCOPE Time Seen by Provider: 03/26/17 15:16 - History of Present Illness INITIAL COMMENTS - FREE TEXT/NARRATIVE: HISTORY AND PHYSICAL: History of present illness: Patient 31-year-old female history of cholelithiasis with biliary colic who presents after syncopal episode she had seen general surgery to schedule her cholecystectomy and upon departure had a painful episode and lost consciousness this was not witnessed there is no associated trauma reported she's had similar episodes in the past. She denies chest pain shortness breath or other concern heart from her biliary colic pain. There's been no vomiting no diarrhea no fever no chills Review of systems: As per history of present illness and below otherwise all systems reviewed and negative. Past medical history: As per history of present illness and as reviewed below otherwise noncontributory. Surgical history: As per history of present illness and as reviewed below otherwise noncontributory. Social history: No reported history of drug or alcohol abuse. Family history: As per history of present illness and as reviewed below otherwise noncontributory. Physical exam: HEENT: Atraumatic, normocephalic, pupils reactive, negative for conjunctival pallor or scleral icterus, mucous membranes moist, throat clear, neck supple, nontender, trachea midline. Lungs: Clear to auscultation, breath sounds equal bilaterally, chest nontender. Heart: S1S2, regular, negative for clicks, rubs, or JVD. Abdomen: Soft, nondistended, tenderness in the right upper quadrant to deep palpation no rebound no guarding. Negative for masses or hepatosplenomegaly. Negative for costovertebral tenderness. Pelvis: Stable nontender. Genitourinary: Deferred. Rectal: Deferred. Extremities: Atraumatic, negative for cords or calf pain. Neurovascular unremarkable. Neuro: Awake, alert, oriented. Cranial nerves II through XII unremarkable. Cerebellum unremarkable. Motor and sensory unremarkable throughout. Exam nonfocal. Diagnostics: CBC CMP amylase lipase UA urine tox ACG chest x-ray EKG Therapeutics: Normal saline 1 L bolus Toradol 30 mg IV Impression: #1 biliary colic #2 vasovagal syncope Definitive disposition and diagnosis as appropriate pending reevaluation and review of above. - Related Data Allergies Allergy/AdvReac Type Severity Reaction Status Date / Time Penicillins Allergy Anaphylactic Verified 03/13/17 05:27 Shock Home Meds: Home Meds Acetaminophen/oxyCODONE [Percocet 325-5 MG] 1 tab PO Q6H PRN #30 tablet [Rx] Intra Uterine Device 03/09/17 [History] Levofloxacin [Levaquin] 750 mg PO DAILY 4 Days #4 tablet 03/09/17 [Rx] Past Medical History HEENT History: Reports: None, 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) Other HEENT History: wears contacts Cardiovascular History: Reports: None Respiratory History: Reports: None Gastrointestinal History: Reports: Cholelithiasis Genitourinary History: Reports: UTI, Recurrent 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: , 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) Other OB/BYN History: IUD Musculoskeletal History: Reports: None Neurological History: Reports: Migraines Psychiatric History: Reports: Anxiety, Depression Endocrine/Metabolic History: Reports: Hypothyroidism Hematologic History: Reports: None Immunologic History: Reports: None Oncologic (Cancer) History: Reports: None Dermatologic History: Reports: None - Infectious Disease History Infectious Disease History: Reports: Chicken Pox - Past Surgical History Female Surgical History: Reports: None Other Female Surgeries/Procedures: ovarian cyst Musculoskeletal Surgical History: Reports: None Social & Family History - Family History Family Medical History: Noncontributory - Tobacco Use Smoking Status *Q: Current Every Day Smoker Years of Tobacco use: 10 Packs/Tins Daily: 1 Second Hand Smoke Exposure: No - Caffeine Use Caffeine Use: Reports: Coffee, Soda - Recreational Drug Use Recreational Drug Use: No ED ROS GENERAL - Review of Systems Review Of Systems: ROS reveals no pertinent complaints other than HPI. ED EXAM, GENERAL - Physical Exam Exam: See Below (See dictation) Course - Vital Signs Last Recorded V/S: Last Vital Signs Temp 36.5 C 03/26/17 15:21 Pulse 68 03/26/17 15:21 Resp 16 03/26/17 15:21 BP 126/78 03/26/17 15:21 Pulse Ox 96 03/26/17 15:21 - Orders/Labs/Meds Orders: Active Orders 24 hr Category Date Time Status EKG Documentation Completion [RC] STAT Care 03/26/17 15:31 Active Orthostatic Vital Signs [RC] ASDIRECTED Care 03/26/17 16:15 Active Chest 1V Frontal [CR] Stat Exams 03/26/17 15:32 Ordered HCG QUALITATIVE,URINE [URCHEM] Stat Lab 03/26/17 15:31 Uncollected UA W/MICROSCOPIC [URIN] Stat Lab 03/26/17 15:31 Uncollected Labs: Laboratory Tests 03/26/17 03/26/17 Range/Units 15:50 15:50 WBC 5.99 (4.0-11.0) K/uL RBC 4.46 (4.30-5.90) M/uL Hgb 13.6 (12.0-16.0) g/dL Hct 39.8 (36.0-46.0) % MCV 89.2 (80.0-98.0) fL MCH 30.5 (27.0-32.0) pg MCHC 34.2 (31.0-37.0) g/dL RDW Std Deviation 43.1 (28.0-62.0) fl RDW Coeff of Luciano 13 (11.0-15.0) % Plt Count 254 (150-400) K/uL MPV 9.60 (7.40-12.00) fL Neut % (Auto) 49.5 (48.0-80.0) % Lymph % (Auto) 38.9 (16.0-40.0) % Orange % (Auto) 8.8 (0.0-15.0) % Eos % (Auto) 2.3 (0.0-7.0) % Baso % (Auto) 0.5 (0.0-1.5) % Neut # (Auto) 3.0 (1.4-5.7) K/uL Lymph # (Auto) 2.3 (0.6-2.4) K/uL Orange # (Auto) 0.5 (0.0-0.8) K/uL Eos # (Auto) 0.1 (0.0-0.7) K/uL Baso # (Auto) 0.0 (0.0-0.1) K/uL Nucleated RBC % 0.0 /100WBC Nucleated RBCs # 0 K/uL Sodium 138 (136-146) mmol/L Potassium 3.9 (3.5-5.1) mmol/L Chloride 108 (98-110) mmol/L Carbon Dioxide 24 (21-31) mmol/L BUN 9 (6.0-23.0) mg/dL Creatinine 0.8 (0.6-1.5) mg/dL Est Cr Clr Drug Dosing TNP Estimated GFR (MDRD) > 60.0 ml/min Glucose 91 (60-110) mg/dL Calcium 9.0 (8.8-10.8) mg/dL Total Bilirubin 0.4 (0.1-1.5) mg/dL AST 17 (5-40) IU/L ALT 21 (8-54) IU/L Alkaline Phosphatase 49 (40-150) Total Protein 7.0 (6.0-8.0) g/dL Albumin 3.8 (3.5-5.0) g/dL Globulin 3.2 (2.0-3.5) g/dL Albumin/Globulin Ratio 1.2 L (1.3-2.8) Lipase 22 (7-80) U/L Meds: Medications Discontinued Medications Generic Name Dose Route Start Last Admin Trade Name Freq PRN Reason Stop Dose Admin Sodium Chloride 1,000 mls @ 999 mls/hr 03/26/17 15:31 03/26/17 15:41 Normal Saline IV 03/26/17 16:31 999 mls/hr .Bolus ONE Administration Ketorolac Tromethamine 30 mg 03/26/17 15:32 03/26/17 15:56 Toradol IVPUSH 03/26/17 15:33 30 mg ONETIME ONE Administration Departure - Departure Time of Disposition: 16:40 Disposition: Home, Self-Care 01 Condition: Good Clinical Impression: Vasovagal syncope, Biliary colic - Discharge Information Additional Instructions: The following information is given to patients seen in the emergency department who are being discharged to home. This information is to outline your options for follow-up care. We provide all patients seen in our emergency department with a follow-up referral. The need for follow-up, as well as the timing and circumstances, are variable depending upon the specifics of your emergency department visit. If you don't have a primary care physician on staff, we will provide you with a referral. We always advise you to contact your personal physician following an emergency department visit to inform them of the circumstance of the visit and for follow-up with them and/or the need for any referrals to a consulting specialist. The emergency department will also refer you to a specialist when appropriate. This referral assures that you have the opportunity for followup care with a specialist. All of these measure are taken in an effort to provide you with optimal care, which includes your followup. Under all circumstances we always encourage you to contact your private physician who remains a resource for coordinating your care. When calling for followup care, please make the office aware that this follow-up is from your recent emergency room visit. If for any reason you are refused follow-up, please contact the [facility] emergency department at and asked to speak to the emergency department charge nurse. Continue current medications keep scheduled appointment with general surgery push fluids return as needed as discussed - My Orders Last 24 Hours: My Active Orders 03/26/17 15:31 EKG Documentation Completion [RC] STAT HCG QUALITATIVE,URINE [URCHEM] Stat UA W/MICROSCOPIC [URIN] Stat 03/26/17 15:32 Chest 1V Frontal [CR] Stat 03/26/17 16:15 Orthostatic Vital Signs [RC] ASDIRECTED - Assessment/Plan Last 24 Hours: My Active Orders 03/26/17 15:31 EKG Documentation Completion [RC] STAT HCG QUALITATIVE,URINE [URCHEM] Stat UA W/MICROSCOPIC [URIN] Stat 03/26/17 15:32 Chest 1V Frontal [CR] Stat 03/26/17 16:15 Orthostatic Vital Signs [RC] ASDIRECTED
[2017-03-26] MEDS ORDERED: Sodium Chloride 0.9% 1,000 ML IV ONE (15:31)
[2017-03-26] MEDS ORDERED: Ketorolac 30 MG/ML SDV IVPUSH ONE (15:32)
[2017-03-26 16:23] LABS: CHLORIDE,CL 108 mmol/L (98-110); SODIUM,NA 138 mmol/L (136-146)
--- NOTE | 2017-03-27 08:39 | CR ---
EXAMINATION: Portable chest radiograph. HISTORY: Syncope. FINDINGS: The trachea is midline. The cardiomediastinal silhouette is within normal limits. No pulmonary infilt rates, effusions or pneumothorax. Osseous structures appear unremarkable. IMPRESSION: No acute cardiopulmonary process.
== END 2017-03-26 17:02 | disposition home or self-care (01) ==
LOC: MW.ED 15:15
DX: R55 Syncope and collapse (principal); K80.50 Calculus of bile duct without cholangitis or cholecystitis without obstruction; F17.210 Nicotine dependence, cigarettes, uncomplicated; E03.9 Hypothyroidism, unspecified; Z88.0 Allergy status to penicillin; Z79.2 Long term (current) use of antibiotics
CPT/HCPCS: 36415; 71010; 80053; 83690; 85025; 93005; 96361; 96374; 99284; J1885; J7040

== ENCOUNTER 2017-03-29 19:17 | Emergency (ER) | payer SELFPAY ==
[2017-03-29] MEDS ORDERED: Ketorolac 30 MG/ML SDV IVPUSH ONE (19:35)
[2017-03-29] MEDS ORDERED: Ondansetron 4 MG/2 ML SDV IVPUSH ONE (19:35)
--- NOTE | 2017-03-29 19:38 | EDM.PDOC ---
ED HPI GENERAL MEDICAL PROBLEM - General Chief Complaint: Neuro Symptoms/Deficits Stated Complaint: PT FAINTED Time Seen by Provider: 03/29/17 19:33 - History of Present Illness INITIAL COMMENTS - FREE TEXT/NARRATIVE: HISTORY AND PHYSICAL: History of present illness: Patient 31-year-old female presents with a concern of presumptive vasovagal syncope related to biliary colic she is seen for the same by myself in the recent past she is scheduled to have her gallbladder out on the she has had multiple episodes of similar nature related to her biliary colic. She is now chest pain shortness of breath no other complaints there was no associated trauma Review of systems: As per history of present illness and below otherwise all systems reviewed and negative. Past medical history: As per history of present illness and as reviewed below otherwise noncontributory. Surgical history: As per history of present illness and as reviewed below otherwise noncontributory. Social history: No reported history of drug or alcohol abuse. Family history: As per history of present illness and as reviewed below otherwise noncontributory. Physical exam: HEENT: Atraumatic, normocephalic, pupils reactive, negative for conjunctival pallor or scleral icterus, mucous membranes moist, throat clear, neck supple, nontender, trachea midline. Lungs: Clear to auscultation, breath sounds equal bilaterally, chest nontender. Heart: S1S2, regular, negative for clicks, rubs, or JVD. Abdomen: Soft, nondistended, mild tenderness in the right upper quadrant no rebound no guarding no significant interval change from her prior visit as I recall. Negative for masses or hepatosplenomegaly. Negative for costovertebral tenderness. Pelvis: Stable nontender. Genitourinary: Deferred. Rectal: Deferred. Extremities: Atraumatic, negative for cords or calf pain. Neurovascular unremarkable. Neuro: Awake, alert, oriented. Cranial nerves II through XII unremarkable. Cerebellum unremarkable. Motor and sensory unremarkable throughout. Exam nonfocal. Diagnostics: CBC CMP and lipase UA hCG EKG Therapeutics: Saline 1 L bolus and Toradol 30 mg's IV Zofran 4 mg IV hall monitor Impression: #1 biliary colic #2 vasovagal syncope Definitive disposition and diagnosis as appropriate pending reevaluation and review of above. - Related Data Allergies Allergy/AdvReac Type Severity Reaction Status Date / Time Penicillins Allergy Anaphylactic Verified 03/29/17 19:30 Shock Home Meds: Home Meds Acetaminophen/oxyCODONE [Percocet 325-5 MG] 1 tab PO Q6H PRN #30 tablet [Rx] Intra Uterine Device 03/09/17 [History] FLUoxetine [PROzac] 10 mg PO DAILY 03/29/17 [History] Past Medical History HEENT History: Reports: None, 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) Other HEENT History: wears contacts Cardiovascular History: Reports: None Respiratory History: Reports: None Gastrointestinal History: Reports: Cholelithiasis Genitourinary History: Reports: UTI, Recurrent 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: , 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) Other OB/BYN History: IUD Musculoskeletal History: Reports: None Neurological History: Reports: Migraines Psychiatric History: Reports: Anxiety, Depression Endocrine/Metabolic History: Reports: Hypothyroidism Hematologic History: Reports: None Immunologic History: Reports: None Oncologic (Cancer) History: Reports: None Dermatologic History: Reports: None - Infectious Disease History Infectious Disease History: Reports: Chicken Pox - Past Surgical History Female Surgical History: Reports: None Other Female Surgeries/Procedures: ovarian cyst Musculoskeletal Surgical History: Reports: None Social & Family History - Family History Family Medical History: Noncontributory - Tobacco Use Smoking Status *Q: Current Every Day Smoker Years of Tobacco use: 10 Packs/Tins Daily: 1 Second Hand Smoke Exposure: No - Caffeine Use Caffeine Use: Reports: Coffee, Soda - Recreational Drug Use Recreational Drug Use: No ED ROS GENERAL - Review of Systems Review Of Systems: ROS reveals no pertinent complaints other than HPI. ED EXAM, GENERAL - Physical Exam Exam: Not Obtained (dictation) Course - Vital Signs Last Recorded V/S: Last Vital Signs Temp 36.3 C 03/29/17 19:17 Pulse 60 03/29/17 19:17 Resp 18 03/29/17 19:17 BP 115/69 03/29/17 19:46 Pulse Ox 98 03/29/17 19:17 - Orders/Labs/Meds Orders: Active Orders 24 hr Category Date Time Status Cardiac Monitoring [RC] . DIRECTED Care 03/29/17 19:41 Active EKG 12 Lead [EKG Documentation Completion] [RC] STAT Care 03/29/17 19:42 Active HCG QUALITATIVE,URINE [URCHEM] Stat Lab 03/29/17 19:34 Uncollected UA W/MICROSCOPIC [URIN] Stat Lab 03/29/17 19:34 Uncollected Labs: Laboratory Tests 03/29/17 03/29/17 03/29/17 Range/Units 19:45 19:45 19:45 WBC 6.31 (4.0-11.0) K/uL RBC 4.40 (4.30-5.90) M/uL Hgb 13.2 (12.0-16.0) g/dL Hct 39.1 (36.0-46.0) % MCV 88.9 (80.0-98.0) fL MCH 30.0 (27.0-32.0) pg MCHC 33.8 (31.0-37.0) g/dL RDW Std Deviation 42.2 (28.0-62.0) fl RDW Coeff of Luciano 13 (11.0-15.0) % Plt Count 244 (150-400) K/uL MPV 9.30 (7.40-12.00) fL Neut % (Auto) 54.6 (48.0-80.0) % Lymph % (Auto) 35.3 (16.0-40.0) % Ballard % (Auto) 8.2 (0.0-15.0) % Eos % (Auto) 1.6 (0.0-7.0) % Baso % (Auto) 0.3 (0.0-1.5) % Neut # (Auto) 3.4 (1.4-5.7) K/uL Lymph # (Auto) 2.2 (0.6-2.4) K/uL Ballard # (Auto) 0.5 (0.0-0.8) K/uL Eos # (Auto) 0.1 (0.0-0.7) K/uL Baso # (Auto) 0.0 (0.0-0.1) K/uL Nucleated RBC % 0.0 /100WBC Nucleated RBCs # 0 K/uL Sodium 138 (136-146) mmol/L Potassium 4.0 (3.5-5.1) mmol/L Chloride 107 (98-110) mmol/L Carbon Dioxide 25 (21-31) mmol/L BUN 9 (6.0-23.0) mg/dL Creatinine 0.8 (0.6-1.5) mg/dL Est Cr Clr Drug Dosing 90.00 mL/min Estimated GFR (MDRD) > 60.0 ml/min Glucose 112 H (60-110) mg/dL Calcium 9.0 (8.8-10.8) mg/dL Total Bilirubin 0.2 (0.1-1.5) mg/dL AST 22 (5-40) IU/L ALT 27 (8-54) IU/L Alkaline Phosphatase 50 (40-150) Total Protein 6.8 (6.0-8.0) g/dL Albumin 3.8 (3.5-5.0) g/dL Globulin 3.0 (2.0-3.5) g/dL Albumin/Globulin Ratio 1.3 (1.3-2.8) Lipase 26 (7-80) U/L Meds: Medications Discontinued Medications Generic Name Dose Route Start Last Admin Trade Name Freq PRN Reason Stop Dose Admin Sodium Chloride 1,000 mls @ 999 mls/hr 03/29/17 19:41 03/29/17 20:02 Normal Saline IV 03/29/17 20:41 999 mls/hr .Bolus ONE Administration Ketorolac Tromethamine 30 mg 03/29/17 19:35 03/29/17 20:10 Toradol IVPUSH 03/29/17 19:36 30 mg ONETIME ONE Administration Ondansetron HCl 4 mg 03/29/17 19:35 03/29/17 20:08 Zofran IVPUSH 03/29/17 19:36 4 mg ONETIME ONE Administration Departure - Departure Time of Disposition: 20:45 Disposition: Home, Self-Care 01 Condition: Good Clinical Impression: Biliary colic, Vasovagal syncope - Discharge Information Forms: ED Department Discharge Additional Instructions: The following information is given to patients seen in the emergency department who are being discharged to home. This information is to outline your options for follow-up care. We provide all patients seen in our emergency department with a follow-up referral. The need for follow-up, as well as the timing and circumstances, are variable depending upon the specifics of your emergency department visit. If you don't have a primary care physician on staff, we will provide you with a referral. We always advise you to contact your personal physician following an emergency department visit to inform them of the circumstance of the visit and for follow-up with them and/or the need for any referrals to a consulting specialist. The emergency department will also refer you to a specialist when appropriate. This referral assures that you have the opportunity for followup care with a specialist. All of these measure are taken in an effort to provide you with optimal care, which includes your followup. Under all circumstances we always encourage you to contact your private physician who remains a resource for coordinating your care. When calling for followup care, please make the office aware that this follow-up is from your recent emergency room visit. If for any reason you are refused follow-up, please contact the [facility] emergency department at and asked to speak to the emergency department charge nurse. Keep scheduled appointment for surgery with general surgery as discussed push fluids activity as tolerated continue current medications and return as needed as discussed - My Orders Last 24 Hours: My Active Orders 03/29/17 19:34 HCG QUALITATIVE,URINE [URCHEM] Stat UA W/MICROSCOPIC [URIN] Stat 03/29/17 19:41 Cardiac Monitoring [RC] . DIRECTED 03/29/17 19:42 EKG 12 Lead [EKG Documentation Completion] [RC] STAT - Assessment/Plan Last 24 Hours: My Active Orders 03/29/17 19:34 HCG QUALITATIVE,URINE [URCHEM] Stat UA W/MICROSCOPIC [URIN] Stat 03/29/17 19:41 Cardiac Monitoring [RC] . DIRECTED 03/29/17 19:42 EKG 12 Lead [EKG Documentation Completion] [RC] STAT
[2017-03-29] MEDS ORDERED: Sodium Chloride 0.9% 1,000 ML IV ONE (19:41)
[2017-03-29 20:14] LABS: CHLORIDE,CL 107 mmol/L (98-110); SODIUM,NA 138 mmol/L (136-146)
== END 2017-03-29 21:12 | disposition home or self-care (01) ==
LOC: MW.ED 19:17
DX: R55 Syncope and collapse (principal); K80.50 Calculus of bile duct without cholangitis or cholecystitis without obstruction; F17.210 Nicotine dependence, cigarettes, uncomplicated; Z79.899 Other long term (current) drug therapy; Z88.0 Allergy status to penicillin
CPT/HCPCS: 36415; 80053; 81001; 81025; 83690; 85025; 93005; 96361; 96374; 96375; 99285; J1885; J2405; J7040; 99284

== ENCOUNTER 2017-04-18 06:27 | Day surgery (SDC) | payer SELFPAY ==
[~2017-04-18 06:27] MED LIST: Lactated Ringers 1,000 ML IV SCH; cefOXitin 2 GM in Premix Bag 1 BAG IV ONE
[2017-04-18] MEDS ORDERED: fentaNYL 100 MCG/2 ML SDV ONE ×3 (07:00→08:37)
[2017-04-18] MEDS ORDERED: Propofol 200 MG/20 ML SDV ONE (07:00)
[2017-04-18] MEDS ORDERED: Midazolam 1 MG/ML 2 ML SDV ONE (07:00)
[2017-04-18] MEDS ORDERED: Scopolamine 1.5 MG Transdermal Patch TRDERM PRN (07:06)
--- NOTE | 2017-04-18 07:08 | PCM.PREANE ---
Preanesthetic Assessment - Anesthesia/Transfusion/Family Hx Anesthesia History: No Prior Anesthesia Family History of Anesthesia Reaction: No Transfusion History: No Prior Transfusion(s) Intubation History: Unknown - Review of Systems General: No Symptoms Pulmonary: No Symptoms Cardiovascular: No Symptoms Gastrointestinal: Abdominal Pain Neurological: No Symptoms Other: Reports: None - Physical Assessment Height: 1.65 m Weight: 77.564 kg ASA Class: 2 Mental Status: Alert & Oriented x3 Airway Class: Mallampati = 2 Dentition: Reports: Normal Dentition Thyro-Mental Finger Breadths: 3 Mouth Opening Finger Breadths: 3 ROM/Head Extension: Full Lungs: Clear to Auscultation, Normal Respiratory Effort Cardiovascular: Regular Rate, Regular Rhythm - Lab Values: Laboratory Last Values Urine HCG, Qual NEGATIVE (NEGATIVE) 04/18/17 06:38 - Allergies Allergies/Adverse Reactions: Allergies Allergy/AdvReac Type Severity Reaction Status Date / Time Penicillins Allergy Anaphylactic Verified 03/29/17 19:30 Shock - Blood Blood Available: No - Anesthesia Plan Pre-Op Medication Ordered: None - Acknowledgements Anesthesia Type Planned: General Anesthesia Pt an Appropriate Candidate for the Planned Anesthesia: Yes Alternatives and Risks of Anesthesia Discussed w Pt/Guardian: Yes Pt/Guardian Understands and Agrees with Anesthesia Plan: Yes PreAnesthesia Questionnaire - Past Health History Medical/Surgical History: Denies Medical/Surgical History HEENT History: Reports: 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) Other HEENT History: wears contacts/glasses Cardiovascular History: Reports: None Respiratory History: Reports: None Gastrointestinal History: Reports: Cholelithiasis Genitourinary History: Reports: UTI, Recurrent 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: , 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) Other OB/BYN History: IUD Musculoskeletal History: Reports: Back Pain, Chronic Neurological History: Reports: Migraines Psychiatric History: Reports: Anxiety, Depression Endocrine/Metabolic History: Reports: Hypothyroidism Hematologic History: Reports: None Immunologic History: Reports: None Oncologic (Cancer) History: Reports: None Dermatologic History: Reports: None - Infectious Disease History Infectious Disease History: Reports: Chicken Pox - Past Surgical History HEENT Surgical History: Reports: Oral Surgery Female Surgical History: Reports: None Musculoskeletal Surgical History: Reports: None - SUBSTANCE USE Smoking Status *Q: Current Every Day Smoker (1/2 ppd) Tobacco Use Within Last Twelve Months: Cigarettes Second Hand Smoke Exposure: No Recreational Drug Use History: No - HOME MEDS Home Medications: Home Meds FLUoxetine [PROzac] 10 mg PO DAILY 03/29/17 [History] clonazePAM [Klonopin] 1 mg PO ASDIRECTED 04/15/17 [History] - CURRENT (IN HOUSE) MEDS Current Meds: Current Medications Lactated Ringer's (Ringers, Lactated) 1,000 mls @ 125 mls/hr IV ASDIRECTED ELISEO Discontinued Medications Fentanyl (Sublimaze) Confirm Administered Dose 100 mcg .ROUTE .STK-MED ONE Stop: 04/18/17 07:01 Cefoxitin Sodium 2 gm/ Premix 50 mls @ 100 mls/hr IV ONETIME ONE Stop: 04/18/17 06:29 Midazolam HCl (Versed 1 Mg/Ml) Confirm Administered Dose 2 mg .ROUTE .STK-MED ONE Stop: 04/18/17 07:01 Propofol (Diprivan 20 Ml) Confirm Administered Dose 200 mg .ROUTE .STK-MED ONE Stop: 04/18/17 07:01
[2017-04-18] MEDS ORDERED: Ondansetron 4 MG/2 ML SDV ONE (07:14)
[2017-04-18] MEDS ORDERED: Dexamethasone 4 MG/ML 5 ML MDV ONE (07:14)
[2017-04-18] MEDS ORDERED: Neostigmine Methylsulfate 1 MG/ML 5 ML Syringe ONE (07:15)
[2017-04-18] MEDS ORDERED: Rocuronium 10 MG/ML 10 ML Syringe ONE (07:15)
[2017-04-18] MEDS ORDERED: Succinylcholine/Normal Saline 200 MG/10 ML Syringe ONE (07:15)
[2017-04-18] MEDS ORDERED: Bupivacaine 0.5% 30 ML SDV ONE (07:19)
[2017-04-18] MEDS ORDERED: Morphine 10 MG/ML Syringe IVPUSH PRN (09:03)
--- NOTE | 2017-04-18 09:07 | PCM.OPNOTE ---
- General Post-Op/Procedure Note Date of Surgery/Procedure: 04/18/17 Operative Procedure(s): Laparoscopic cholecystectomy Pre Op Diagnosis: Symptomatic cholelithiasis Post-Op Diagnosis: Cholelithiasis with cholecystitis Anesthesia Technique: General ET Tube (ASA II) Primary Surgeon: Alfredo Valadez Fluid Replacement, Intraop: 1,500 EBL in mLs: 10 Condition: Good Free Text/Narrative:: Dictation [id number] CPT CODE 77770
[2017-04-18] MEDS ORDERED: Lactated Ringers 1,000 ML IV SCH (09:15)
[2017-04-18] MEDS: fentaNYL 100 MCG/2 ML SDV IVPUSH PRN ×3 (09:35→10:46)
--- NOTE | 2017-04-18 10:29 | OR ---
SURGEON: Alfredo Valadez M.D. DATE OF PROCEDURE: 04/18/2017 OPERATION PERFORMED: Laparoscopic cholecystectomy. ANESTHESIA: General endotracheal. ASA CLASSIFICATION: II. PREOPERATIVE DIAGNOSIS: Symptomatic cholelithiasis. POSTOPERATIVE DIAGNOSIS: Cholelithiasis with cholecystitis. INTRAOPERATIVE FLUID REPLACEMENT: 1500 mL of crystalloid. ESTIMATED BLOOD LOSS: 10 mL. DESCRIPTION OF PROCEDURE: The patient was taken to the operating room and placed on the operating table in the supine position. Time-out was called for appropriate identification of the patient and procedure. Thigh-high TEDs and sequential compression boots were placed. Following satisfactory attainment of general endotracheal anesthesia, the Hardy catheter was placed in the patient's urinary bladder. The abdomen was prepped with DuraPrep solution. Sterile drapes were applied. The skin just below the umbilicus was infiltrated with 0.5% Marcaine solution. The skin incision was made and deepened through the subcutaneous tissue obtaining hemostasis with the use of electrocautery. Veress needle was introduced into the peritoneal cavity. Saline drop test was positive. Carbon dioxide pneumoperitoneum was established with the relief set at 13 cm of water. Once we had a satisfactory pneumoperitoneum, the patient was positioned with her feet down and rolled to the left. Under camera vision, 12 mm subxiphoid, 5 mm midclavicular, and 5 mm anterior axillary ports were placed. Each incision was preemptively infiltrated with 0.5% Marcaine solution. With all ports in place, the gallbladder was grasped and the cholecystohepatic triangle was dissected free identifying the cystic duct and cystic artery. Good critical view was obtained of each of those structures before hemoclipping. Once both structures were divided, the gallbladder was dissected away from its bed using electrocautery. Once the gallbladder was amputated, this was placed in an Endopouch. The right upper quadrant was then irrigated with sterile saline solution. There was minimal oozing from the gallbladder bed. No bile was noted. Surgicel was placed into the bed of the gallbladder. The right hemidiaphragm was then irrigated with 250 mL of saline containing 20 mL of 0.5% Marcaine solution. That fluid was left in place. Under camera vision, the Endopouch containing the gallbladder was removed through the subxiphoid port. Again under camera vision, 5 mm midclavicular and 5 mm anterior axillary ports were removed. Finally, the infraumbilical camera and port were removed. Wounds were inspected for hemostasis and small bleeding sites were electrocoagulated. The subxiphoid and infraumbilical incisions were closed in 2 layers approximating the subcutaneous tissue with 3-0 Polysorb and the skin with subcuticular 4-0 Monocryl. The midclavicular and anterior axillary incisions were closed with subcuticular 4-0 Monocryl. All incisions were Steri-Stripped and dressed with sterile Tegaderm pads. Sponge, needle, and instrument counts were all correct. The patient tolerated the procedure well. Prior to emergence from anesthesia, the Hardy catheter was removed. Following emergence from anesthesia and extubation, she was taken to recovery room in stable condition. JACQUELINE SAAB /[id number]
[2017-04-18] MEDS: Acetaminophen/HYDROcodone 325-5 MG Tab PO PRN ×2 (10:47→13:29)
--- NOTE | 2017-04-18 11:34 | PCM.POSTAN ---
POST ANESTHESIA ASSESSMENT - MENTAL STATUS Mental Status: Alert, Oriented - RESPIRATORY Respiratory Status: Respiratory Rate WNL, Airway Patent, O2 Saturation Stable - CARDIOVASCULAR CV Status: Pulse Rate WNL, Blood Pressure Stable - GASTROINTESTINAL GI Status: No Symptoms - PAIN Pain Score: 6 - POST OP HYDRATION Hydration Status: Adequate & Stable - OBSERVATIONS Free Text/Narrative:: no anesthesia problems
== END 2017-04-18 13:35 | disposition home or self-care (01) ==
LOC: MW.SDS 06:27
PROVIDERS: ATTEND Surgery
DX: K80.00 Calculus of gallbladder with acute cholecystitis without obstruction (principal); E03.9 Hypothyroidism, unspecified; F41.9 Anxiety disorder, unspecified; F32.9 Major depressive disorder, single episode, unspecified; G43.909 Migraine, unspecified, not intractable, without status migrainosus; F17.210 Nicotine dependence, cigarettes, uncomplicated; Z79.899 Other long term (current) drug therapy; Z88.0 Allergy status to penicillin; Z87.440 Personal history of urinary (tract) infections; Z98.890 Other specified postprocedural states
CPT/HCPCS: 47562; 81025; A9270; J1100; J2250; J2405; J3010; J7120; 00790; 88304; J2704

== ENCOUNTER 2017-04-18 22:05 | Emergency (ER) | payer SELFPAY ==
[2017-04-18] MEDS ORDERED: Ondansetron 4 MG/2 ML SDV IVPUSH ONE (22:18)
[2017-04-18] MEDS ORDERED: Sodium Chloride 0.9% 1,000 ML IV ONE (22:18)
--- NOTE | 2017-04-18 22:19 | EDM.PDOC ---
ED HPI GENERAL MEDICAL PROBLEM - General Chief Complaint: Abdominal Pain Stated Complaint: PT HAS STOMACH PAINS Time Seen by Provider: 04/18/17 22:15 - History of Present Illness INITIAL COMMENTS - FREE TEXT/NARRATIVE: HISTORY AND PHYSICAL: History of present illness: Patient 31-year-old female status post laparoscopic cholecystectomy from today who presents with concern of abdominal discomfort she's had some mild nausea also she denies fever chills there's been no vomiting or diarrhea no trauma or other complaints apart from the surgery today. Review of systems: As per history of present illness and below otherwise all systems reviewed and negative. Past medical history: As per history of present illness and as reviewed below otherwise noncontributory. Surgical history: As per history of present illness and as reviewed below otherwise noncontributory. Social history: No reported history of drug or alcohol abuse. Family history: As per history of present illness and as reviewed below otherwise noncontributory. Physical exam: HEENT: Atraumatic, normocephalic, pupils reactive, negative for conjunctival pallor or scleral icterus, mucous membranes moist, throat clear, neck supple, nontender, trachea midline. Lungs: Clear to auscultation, breath sounds equal bilaterally, chest nontender. Heart: S1S2, regular, negative for clicks, rubs, or JVD. Abdomen: Soft, nondistended, mild tenderness over her upper abdomen greatest in the epigastrium and right upper quadrant. Negative for masses or hepatosplenomegaly. Negative for costovertebral tenderness. Pelvis: Stable nontender. Genitourinary: Deferred. Rectal: Deferred. Extremities: Atraumatic, negative for cords or calf pain. Neurovascular unremarkable. Neuro: Awake, alert, oriented. Cranial nerves II through XII unremarkable. Cerebellum unremarkable. Motor and sensory unremarkable throughout. Exam nonfocal. Diagnostics: CBC CMP amylase lipase chest x-ray Therapeutics: Saline 1 L bolus Zofran 4 mg IV Impression: #1 postoperative pain status post laparoscopic cholecystectomy Definitive disposition and diagnosis as appropriate pending reevaluation and review of above. - Related Data Allergies Allergy/AdvReac Type Severity Reaction Status Date / Time Penicillins Allergy Anaphylactic Verified 04/18/17 22:18 Shock Home Meds: Home Meds FLUoxetine [PROzac] 10 mg PO DAILY 03/29/17 [History] clonazePAM [Klonopin] 1 mg PO ASDIRECTED 04/15/17 [History] Hydrocodone/Acetaminophen [Hydrocodon-Acetaminophen 5-325] 1 each PO ASDIRECTED PRN 04/18/17 [History] Past Medical History - Past Health History Medical/Surgical History: Denies Medical/Surgical History HEENT History: Reports: 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) Other HEENT History: wears contacts/glasses Cardiovascular History: Reports: None Respiratory History: Reports: None Gastrointestinal History: Reports: Cholelithiasis Genitourinary History: Reports: UTI, Recurrent [employer] History: Reports: , 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) Other OB/BYN History: IUD Musculoskeletal History: Reports: Back Pain, Chronic Neurological History: Reports: Migraines Psychiatric History: Reports: Anxiety, Depression Endocrine/Metabolic History: Reports: Hypothyroidism Hematologic History: Reports: None Immunologic History: Reports: None Oncologic (Cancer) History: Reports: None Dermatologic History: Reports: None - Infectious Disease History Infectious Disease History: Reports: Chicken Pox - Past Surgical History Head Surgeries/Procedures: Reports: None HEENT Surgical History: Reports: Oral Surgery Female Surgical History: Reports: None Musculoskeletal Surgical History: Reports: None Social & Family History - Family History Family Medical History: Noncontributory - Tobacco Use Smoking Status *Q: Current Every Day Smoker Years of Tobacco use: 10 Packs/Tins Daily: 1 Second Hand Smoke Exposure: No - Caffeine Use Caffeine Use: Reports: Coffee, Soda - Recreational Drug Use Recreational Drug Use: No ED ROS GENERAL - Review of Systems Review Of Systems: ROS reveals no pertinent complaints other than HPI. ED EXAM, GENERAL - Physical Exam Exam: See Below (See dictation) Course - Vital Signs Last Recorded V/S: Last Vital Signs Temp 36.6 C 04/18/17 22:15 Pulse 75 04/18/17 22:15 Resp 12 04/18/17 22:15 BP 110/69 04/18/17 22:15 Pulse Ox 95 04/18/17 22:15 - Orders/Labs/Meds Orders: Active Orders 24 hr Category Date Time Status Chest 1V Frontal [CR] Stat Exams 04/18/17 22:18 Taken Labs: Laboratory Tests 04/18/17 04/18/17 Range/Units 22:28 22:28 WBC 15.51 H (4.0-11.0) K/uL RBC 4.52 (4.30-5.90) M/uL Hgb 13.7 (12.0-16.0) g/dL Hct 40.2 (36.0-46.0) % MCV 88.9 (80.0-98.0) fL MCH 30.3 (27.0-32.0) pg MCHC 34.1 (31.0-37.0) g/dL RDW Std Deviation 42.3 (28.0-62.0) fl RDW Coeff of Luciano 13 (11.0-15.0) % Plt Count 276 (150-400) K/uL MPV 9.60 (7.40-12.00) fL Nucleated RBC % 0.0 /100WBC Nucleated RBCs # 0 K/uL Sodium 138 (136-146) mmol/L Potassium 4.0 (3.5-5.1) mmol/L Chloride 107 (98-110) mmol/L Carbon Dioxide 23 (21-31) mmol/L BUN 7 (6.0-23.0) mg/dL Creatinine 0.8 (0.6-1.5) mg/dL Est Cr Clr Drug Dosing 90.00 mL/min Estimated GFR (MDRD) > 60.0 ml/min Glucose 155 H (60-110) mg/dL Calcium 9.5 (8.8-10.8) mg/dL Total Bilirubin 0.3 (0.1-1.5) mg/dL AST 22 (5-40) IU/L ALT 35 (8-54) IU/L Alkaline Phosphatase 51 (40-150) Total Protein 7.2 (6.0-8.0) g/dL Albumin 3.8 (3.5-5.0) g/dL Globulin 3.4 (2.0-3.5) g/dL Albumin/Globulin Ratio 1.1 L (1.3-2.8) Amylase 45 (10-90) U/L Lipase 23 (7-80) U/L Meds: Medications Discontinued Medications Generic Name Dose Route Start Last Admin Trade Name Freq PRN Reason Stop Dose Admin Hydromorphone HCl 1 mg 04/18/17 23:11 04/18/17 23:16 Dilaudid IVPUSH 04/18/17 23:12 1 mg ONETIME ONE Administration Sodium Chloride 1,000 mls @ 999 mls/hr 04/18/17 22:18 04/18/17 22:31 Normal Saline IV 04/18/17 23:18 999 mls/hr .Bolus ONE Administration Ketorolac Tromethamine 30 mg 04/18/17 22:36 04/18/17 22:50 Toradol IVPUSH 04/18/17 22:37 30 mg ONETIME ONE Administration Ondansetron HCl 4 mg 04/18/17 22:18 04/18/17 22:32 Zofran IVPUSH 04/18/17 22:19 4 mg ONETIME ONE Administration Departure - Departure Time of Disposition: 00:04 Disposition: Home, Self-Care 01 Condition: Good Clinical Impression: Postoperative abdominal pain - Discharge Information Instructions: Pain Relief Preoperatively and Postoperatively Referrals: PCP,None [Primary Care Provider] - Forms: ED Department Discharge Care Plan Goals: followup with your primary care in 1-2 days, to return to ed for worsening condition. - My Orders Last 24 Hours: My Active Orders 04/18/17 22:18 Chest 1V Frontal [CR] Stat - Assessment/Plan Last 24 Hours: My Active Orders 04/18/17 22:18 Chest 1V Frontal [CR] Stat
[2017-04-18] MEDS ORDERED: Ketorolac 30 MG/ML SDV IVPUSH ONE (22:36)
[2017-04-18 22:58] LABS: CHLORIDE,CL 107 mmol/L (98-110); SODIUM,NA 138 mmol/L (136-146)
[2017-04-18] MEDS ORDERED: HYDROmorphone 1 MG/ML Syringe IVPUSH ONE (23:11)
--- NOTE | 2017-04-20 06:29 | CR ---
EXAM DATE: 04/18/17 PATIENT'S AGE: 31 Patient: MADAN HOLMAN Facility: [place], [place] Site . Site : 1985 Study: XRay Chest [id number] 10:45:35 PM Ordering Physician: Eri Tripathi Final Report: INDICATION: post op pain (cholecystectomy), sob TECHNIQUE: Chest 1 view. COMPARISON: 05/26/16 FINDINGS: Cardiovascular and mediastinum: Heart size and vasculature are normal in caliber and appearance. Mediastinum is within normal limits. Lungs and pleural space: Lungs are clear. No sign of infiltrate or mass. No sign of pleural effusion. No pneumothorax. Bones and soft tissues: No significant findings. IMPRESSION: Unremarkable chest. Dictated by: Wade Grossman MD @ 04/18/2017 22:51:02 (Electronic Signature) Report Signed by Proxy. JOSE G
== END 2017-04-19 00:13 | disposition home or self-care (01) ==
LOC: MW.ED 22:05
DX: G89.18 Other acute postprocedural pain (principal); R10.11 Right upper quadrant pain; R10.13 Epigastric pain; F17.210 Nicotine dependence, cigarettes, uncomplicated; Z88.0 Allergy status to penicillin; Z79.899 Other long term (current) drug therapy; Z90.49 Acquired absence of other specified parts of digestive tract
CPT/HCPCS: 36415; 71010; 80053; 82150; 83690; 85027; 96361; 96374; 96375; 99284; J1170; J1885; J2405; J7040

== ENCOUNTER 2017-04-30 14:48 | Emergency (ER) | payer SELFPAY ==
--- NOTE | 2017-04-30 14:55 | EDM.PDOC ---
<Bria Viera - Last Filed: 04/30/17 17:02> ED HPI GENERAL MEDICAL PROBLEM - General Chief Complaint: Abdominal Pain Stated Complaint: VOMITING Time Seen by Provider: 04/30/17 15:29 - Related Data Allergies Allergy/AdvReac Type Severity Reaction Status Date / Time Penicillins Allergy Anaphylactic Verified 04/30/17 15:14 Shock Home Meds: Home Meds FLUoxetine [PROzac] 10 mg PO DAILY 03/29/17 [History] clonazePAM [Klonopin] 1 mg PO ASDIRECTED 04/15/17 [History] Course - Vital Signs Last Recorded V/S: Last Vital Signs Temp 36.9 C 04/30/17 15:11 Pulse 75 04/30/17 17:17 Resp 15 04/30/17 17:17 BP 108/70 04/30/17 17:17 Pulse Ox 96 04/30/17 17:17 - Orders/Labs/Meds Labs: Laboratory Tests 04/30/17 04/30/17 04/30/17 Range/Units 15:15 15:15 16:13 WBC 7.83 (4.0-11.0) K/uL RBC 4.78 (4.30-5.90) M/uL Hgb 14.6 (12.0-16.0) g/dL Hct 42.9 (36.0-46.0) % MCV 89.7 (80.0-98.0) fL MCH 30.5 (27.0-32.0) pg MCHC 34.0 (31.0-37.0) g/dL RDW Std Deviation 44.3 (28.0-62.0) fl RDW Coeff of Luciano 13 (11.0-15.0) % Plt Count 259 (150-400) K/uL MPV 9.80 (7.40-12.00) fL Neut % (Auto) 73.6 (48.0-80.0) % Lymph % (Auto) 16.3 (16.0-40.0) % [place] % (Auto) 9.1 (0.0-15.0) % Eos % (Auto) 0.6 (0.0-7.0) % Baso % (Auto) 0.4 (0.0-1.5) % Neut # (Auto) 5.8 H (1.4-5.7) K/uL Lymph # (Auto) 1.3 (0.6-2.4) K/uL [place] # (Auto) 0.7 (0.0-0.8) K/uL Eos # (Auto) 0.1 (0.0-0.7) K/uL Baso # (Auto) 0.0 (0.0-0.1) K/uL Nucleated RBC % 0.0 /100WBC Nucleated RBCs # 0 K/uL Sodium 138 (136-146) mmol/L Potassium 3.8 (3.5-5.1) mmol/L Chloride 106 (98-110) mmol/L Carbon Dioxide 23 (21-31) mmol/L BUN 12 (6.0-23.0) mg/dL Creatinine 0.9 (0.6-1.5) mg/dL Est Cr Clr Drug Dosing 80.00 mL/min Estimated GFR (MDRD) > 60.0 ml/min Glucose 102 (60-110) mg/dL Calcium 9.9 (8.8-10.8) mg/dL Total Bilirubin 0.7 (0.1-1.5) mg/dL AST 21 (5-40) IU/L ALT 69 H (8-54) IU/L Alkaline Phosphatase 73 (40-150) Total Protein 8.1 H (6.0-8.0) g/dL Albumin 4.4 (3.5-5.0) g/dL Globulin 3.7 H (2.0-3.5) g/dL Albumin/Globulin Ratio 1.2 L (1.3-2.8) Lipase 113 H (7-80) U/L Urine Color YELLOW Urine Appearance CLEAR Urine pH 6.0 (5.0-8.0) Ur Specific [place] >= 1.030 (1.001-1.035) Urine Protein NEGATIVE (NEGATIVE) mg/dL Urine Glucose (UA) NEGATIVE (NEGATIVE) mg/dL Urine Ketones TRACE H (NEGATIVE) mg/dL Urine Occult Blood NEGATIVE (NEGATIVE) Urine Nitrite NEGATIVE (NEGATIVE) Urine Bilirubin SMALL H (NEGATIVE) Urine Ictotest NEGATIVE Urine Urobilinogen 1.0 (<2.0) EU/dL Ur Leukocyte Esterase NEGATIVE (NEGATIVE) Urine RBC 0-1 (0-2/HPF) Urine WBC 0-1 (0-5/HPF) Ur Epithelial Cells OCCASIONAL (NONE-FEW) Urine Bacteria FEW (NEGATIVE) Urine Mucus LIGHT (NONE-MOD) Urine HCG, Qual (NEGATIVE) 04/30/17 Range/Units 16:13 WBC (4.0-11.0) K/uL RBC (4.30-5.90) M/uL Hgb (12.0-16.0) g/dL Hct (36.0-46.0) % MCV (80.0-98.0) fL MCH (27.0-32.0) pg MCHC (31.0-37.0) g/dL RDW Std Deviation (28.0-62.0) fl RDW Coeff of Luciano (11.0-15.0) % Plt Count (150-400) K/uL MPV (7.40-12.00) fL Neut % (Auto) (48.0-80.0) % Lymph % (Auto) (16.0-40.0) % [place] % (Auto) (0.0-15.0) % Eos % (Auto) (0.0-7.0) % Baso % (Auto) (0.0-1.5) % Neut # (Auto) (1.4-5.7) K/uL Lymph # (Auto) (0.6-2.4) K/uL [place] # (Auto) (0.0-0.8) K/uL Eos # (Auto) (0.0-0.7) K/uL Baso # (Auto) (0.0-0.1) K/uL Nucleated RBC % /100WBC Nucleated RBCs # K/uL Sodium (136-146) mmol/L Potassium (3.5-5.1) mmol/L Chloride (98-110) mmol/L Carbon Dioxide (21-31) mmol/L BUN (6.0-23.0) mg/dL Creatinine (0.6-1.5) mg/dL Est Cr Clr Drug Dosing mL/min Estimated GFR (MDRD) ml/min Glucose (60-110) mg/dL Calcium (8.8-10.8) mg/dL Total Bilirubin (0.1-1.5) mg/dL AST (5-40) IU/L ALT (8-54) IU/L Alkaline Phosphatase (40-150) Total Protein (6.0-8.0) g/dL Albumin (3.5-5.0) g/dL Globulin (2.0-3.5) g/dL Albumin/Globulin Ratio (1.3-2.8) Lipase (7-80) U/L Urine Color Urine Appearance Urine pH (5.0-8.0) Ur Specific [place] (1.001-1.035) Urine Protein (NEGATIVE) mg/dL Urine Glucose (UA) (NEGATIVE) mg/dL Urine Ketones (NEGATIVE) mg/dL Urine Occult Blood (NEGATIVE) Urine Nitrite (NEGATIVE) Urine Bilirubin (NEGATIVE) Urine Ictotest Urine Urobilinogen (<2.0) EU/dL Ur Leukocyte Esterase (NEGATIVE) Urine RBC (0-2/HPF) Urine WBC (0-5/HPF) Ur Epithelial Cells (NONE-FEW) Urine Bacteria (NEGATIVE) Urine Mucus (NONE-MOD) Urine HCG, Qual NEGATIVE (NEGATIVE) Meds: Medications Discontinued Medications Generic Name Dose Route Start Last Admin Trade Name Elbertq PRN Reason Stop Dose Admin Sodium Chloride 1,000 mls @ 999 mls/hr 04/30/17 15:27 04/30/17 15:37 Normal Saline IV 04/30/17 16:27 999 mls/hr .BOLUS ONE Administration Morphine Sulfate 1 mg 04/30/17 16:27 04/30/17 16:40 Morphine IVPUSH 04/30/17 16:28 1 mg ONETIME ONE Administration Ondansetron HCl 4 mg 04/30/17 15:28 04/30/17 15:37 Zofran IVPUSH 04/30/17 15:29 4 mg ONETIME ONE Administration Departure - Departure Time of Disposition: 17:02 Disposition: Home, Self-Care 01 Condition: Good Clinical Impression: Postoperative abdominal pain - Discharge Information Instructions: Nausea and Vomiting, Adult, [id number] Referrals: PCP,None [Primary Care Provider] - Alfredo Valadez MD [Physician] - 2 Weeks (f/u in 1-2 weeks ) Forms: ED Department Discharge Additional Instructions: The following information is given to patients seen in the emergency department who are being discharged to home. This information is to outline your options for follow-up care. We provide all patients seen in our emergency department with a follow-up referral. The need for follow-up, as well as the timing and circumstances, are variable depending upon the specifics of your emergency department visit. If you don't have a primary care physician on staff, we will provide you with a referral. We always advise you to contact your personal physician following an emergency department visit to inform them of the circumstance of the visit and for follow-up with them and/or the need for any referrals to a consulting specialist. The emergency department will also refer you to a specialist when appropriate. This referral assures that you have the opportunity for followup care with a specialist. All of these measure are taken in an effort to provide you with optimal care, which includes your followup. Under all circumstances we always encourage you to contact your private physician who remains a resource for coordinating your care. When calling for followup care, please make the office aware that this follow-up is from your recent emergency room visit. If for any reason you are refused follow-up, please contact the [facility] emergency department at and asked to speak to the emergency department charge nurse. <Ta Damon - Last Filed: 04/30/17 17:31> ED HPI GENERAL MEDICAL PROBLEM - General Source of Information: Reports: Patient History Limitations: Reports: No Limitations - History of Present Illness INITIAL COMMENTS - FREE TEXT/NARRATIVE: 31 yo fm presents to ED with complaint of nausea, vomiting, diarrhea and abdominal pain. Symptoms began 3 days ago. Her symptoms have worsened to the point where she has not been able to keep anything down, including liquids. Her abdominal pain is located in the epigastric region and is a sharp intermittent pain. She had lap cholecystectomy performed [address] Valadez. She states she was doing well following th surgery until her symptoms began 3 days ago. She denies fever, chills, night sweats, vaginal discharge or recent sexual activity. She is unable to comment on dysuria or hematuria because she has not been urinating. She is on Mirena IUD for control. She smokes 1/2 PPD with 5 pack year history. She drinks alcohol rarely and last time was 2 weeks ago. Abdominal Pain Score (Numeric/FACES): 7 Past Medical History - Past Health History Medical/Surgical History: Denies Medical/Surgical History HEENT History: Reports: 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) Other HEENT History: wears contacts/glasses Cardiovascular History: Reports: None Respiratory History: Reports: None Gastrointestinal History: Reports: Cholelithiasis Genitourinary History: Reports: UTI, Recurrent HUMAN RESOURCES TEMP History: Reports: , 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) Other OB/BYN History: IUD Musculoskeletal History: Reports: Back Pain, Chronic Neurological History: Reports: Migraines Psychiatric History: Reports: Anxiety, Depression Endocrine/Metabolic History: Reports: Hypothyroidism Hematologic History: Reports: None Immunologic History: Reports: None Oncologic (Cancer) History: Reports: None Dermatologic History: Reports: None - Infectious Disease History Infectious Disease History: Reports: Chicken Pox - Past Surgical History Head Surgeries/Procedures: Reports: None HEENT Surgical History: Reports: Oral Surgery Female Surgical History: Reports: None Musculoskeletal Surgical History: Reports: None Social & Family History - Family History Family Medical History: Noncontributory - Tobacco Use Smoking Status *Q: Current Every Day Smoker Years of Tobacco use: 10 Packs/Tins Daily: 1 Second Hand Smoke Exposure: No - Caffeine Use Caffeine Use: Reports: Coffee, Soda - Recreational Drug Use Recreational Drug Use: No ED ROS GENERAL - Review of Systems Review Of Systems: See Below Constitutional: Reports: No Symptoms HEENT: Reports: No Symptoms Respiratory: Reports: No Symptoms Cardiovascular: Reports: No Symptoms Endocrine: Reports: No Symptoms GI/Abdominal: Reports: Abdominal Pain, Diarrhea, Decreased Appetite, Vomiting. Denies: Black Stool, Bloody Stool : Reports: No Symptoms Musculoskeletal: Reports: No Symptoms Skin: Reports: No Symptoms Neurological: Reports: No Symptoms Psychiatric: Reports: No Symptoms Hematologic/Lymphatic: Reports: No Symptoms Immunologic: Reports: No Symptoms ED EXAM, GENERAL - Physical Exam Exam: See Below Exam Limited By: No Limitations General Appearance: Alert, WD/WN, No Apparent Distress Eye Exam: Bilateral Eye: PERRL Ears: Normal External Exam, Normal Canal, Hearing Grossly Normal Nose: Normal Inspection, Normal Mucosa, No Blood Throat/Mouth: Normal Inspection, Normal Oropharynx, Normal Voice Head: Atraumatic, Normocephalic Neck: Normal Inspection, Supple, Non-Tender Respiratory/Chest: No Respiratory Distress, Lungs Clear, Normal Breath Sounds Cardiovascular: Normal Peripheral Pulses, Regular Rate, Rhythm GI/Abdominal: Normal Bowel Sounds, Soft, No Distention, Tender (mild to moderate tenderness present on right side, epigastric and periumbilical regions ), Other (Lap rakan scars appear well healed with no bleeding or drainage). No : Guarding, Rigid, Rebound Back Exam: Normal Inspection, CVA Tenderness (L). No: CVA Tenderness (R) Extremities: Normal Inspection, Slow Capillary Refill Neurological: Alert, Oriented, Normal Reflexes Psychiatric: Normal Affect, Normal Mood Skin Exam: Warm, Dry, Intact, No Rash Lymphatic: No Adenopathy Course - Vital Signs Last Recorded V/S: Last Vital Signs Temp 36.9 C 04/30/17 15:11 Pulse 75 04/30/17 17:17 Resp 15 04/30/17 17:17 BP 108/70 04/30/17 17:17 Pulse Ox 96 04/30/17 17:17 - Orders/Labs/Meds Labs: Laboratory Tests 04/30/17 04/30/17 04/30/17 Range/Units 15:15 15:15 16:13 WBC 7.83 (4.0-11.0) K/uL RBC 4.78 (4.30-5.90) M/uL Hgb 14.6 (12.0-16.0) g/dL Hct 42.9 (36.0-46.0) % MCV 89.7 (80.0-98.0) fL MCH 30.5 (27.0-32.0) pg MCHC 34.0 (31.0-37.0) g/dL RDW Std Deviation 44.3 (28.0-62.0) fl RDW Coeff of Luciano 13 (11.0-15.0) % Plt Count 259 (150-400) K/uL MPV 9.80 (7.40-12.00) fL Neut % (Auto) 73.6 (48.0-80.0) % Lymph % (Auto) 16.3 (16.0-40.0) % [place] % (Auto) 9.1 (0.0-15.0) % Eos % (Auto) 0.6 (0.0-7.0) % Baso % (Auto) 0.4 (0.0-1.5) % Neut # (Auto) 5.8 H (1.4-5.7) K/uL Lymph # (Auto) 1.3 (0.6-2.4) K/uL [place] # (Auto) 0.7 (0.0-0.8) K/uL Eos # (Auto) 0.1 (0.0-0.7) K/uL Baso # (Auto) 0.0 (0.0-0.1) K/uL Nucleated RBC % 0.0 /100WBC Nucleated RBCs # 0 K/uL Sodium 138 (136-146) mmol/L Potassium 3.8 (3.5-5.1) mmol/L Chloride 106 (98-110) mmol/L Carbon Dioxide 23 (21-31) mmol/L BUN 12 (6.0-23.0) mg/dL Creatinine 0.9 (0.6-1.5) mg/dL Est Cr Clr Drug Dosing 80.00 mL/min Estimated GFR (MDRD) > 60.0 ml/min Glucose 102 (60-110) mg/dL Calcium 9.9 (8.8-10.8) mg/dL Total Bilirubin 0.7 (0.1-1.5) mg/dL AST 21 (5-40) IU/L ALT 69 H (8-54) IU/L Alkaline Phosphatase 73 (40-150) Total Protein 8.1 H (6.0-8.0) g/dL Albumin 4.4 (3.5-5.0) g/dL Globulin 3.7 H (2.0-3.5) g/dL Albumin/Globulin Ratio 1.2 L (1.3-2.8) Lipase 113 H (7-80) U/L Urine Color YELLOW Urine Appearance CLEAR Urine pH 6.0 (5.0-8.0) Ur Specific [place] >= 1.030 (1.001-1.035) Urine Protein NEGATIVE (NEGATIVE) mg/dL Urine Glucose (UA) NEGATIVE (NEGATIVE) mg/dL Urine Ketones TRACE H (NEGATIVE) mg/dL Urine Occult Blood NEGATIVE (NEGATIVE) Urine Nitrite NEGATIVE (NEGATIVE) Urine Bilirubin SMALL H (NEGATIVE) Urine Ictotest NEGATIVE Urine Urobilinogen 1.0 (<2.0) EU/dL Ur Leukocyte Esterase NEGATIVE (NEGATIVE) Urine RBC 0-1 (0-2/HPF) Urine WBC 0-1 (0-5/HPF) Ur Epithelial Cells OCCASIONAL (NONE-FEW) Urine Bacteria FEW (NEGATIVE) Urine Mucus LIGHT (NONE-MOD) Urine HCG, Qual (NEGATIVE) 04/30/17 Range/Units 16:13 WBC (4.0-11.0) K/uL RBC (4.30-5.90) M/uL Hgb (12.0-16.0) g/dL Hct (36.0-46.0) % MCV (80.0-98.0) fL MCH (27.0-32.0) pg MCHC (31.0-37.0) g/dL RDW Std Deviation (28.0-62.0) fl RDW Coeff of Luciano (11.0-15.0) % Plt Count (150-400) K/uL MPV (7.40-12.00) fL Neut % (Auto) (48.0-80.0) % Lymph % (Auto) (16.0-40.0) % [place] % (Auto) (0.0-15.0) % Eos % (Auto) (0.0-7.0) % Baso % (Auto) (0.0-1.5) % Neut # (Auto) (1.4-5.7) K/uL Lymph # (Auto) (0.6-2.4) K/uL [place] # (Auto) (0.0-0.8) K/uL Eos # (Auto) (0.0-0.7) K/uL Baso # (Auto) (0.0-0.1) K/uL Nucleated RBC % /100WBC Nucleated RBCs # K/uL Sodium (136-146) mmol/L Potassium (3.5-5.1) mmol/L Chloride (98-110) mmol/L Carbon Dioxide (21-31) mmol/L BUN (6.0-23.0) mg/dL Creatinine (0.6-1.5) mg/dL Est Cr Clr Drug Dosing mL/min Estimated GFR (MDRD) ml/min Glucose (60-110) mg/dL Calcium (8.8-10.8) mg/dL Total Bilirubin (0.1-1.5) mg/dL AST (5-40) IU/L ALT (8-54) IU/L Alkaline Phosphatase (40-150) Total Protein (6.0-8.0) g/dL Albumin (3.5-5.0) g/dL Globulin (2.0-3.5) g/dL Albumin/Globulin Ratio (1.3-2.8) Lipase (7-80) U/L Urine Color Urine Appearance Urine pH (5.0-8.0) Ur Specific [place] (1.001-1.035) Urine Protein (NEGATIVE) mg/dL Urine Glucose (UA) (NEGATIVE) mg/dL Urine Ketones (NEGATIVE) mg/dL Urine Occult Blood (NEGATIVE) Urine Nitrite (NEGATIVE) Urine Bilirubin (NEGATIVE) Urine Ictotest Urine Urobilinogen (<2.0) EU/dL Ur Leukocyte Esterase (NEGATIVE) Urine RBC (0-2/HPF) Urine WBC (0-5/HPF) Ur Epithelial Cells (NONE-FEW) Urine Bacteria (NEGATIVE) Urine Mucus (NONE-MOD) Urine HCG, Qual NEGATIVE (NEGATIVE) Meds: Medications Discontinued Medications Generic Name Dose Route Start Last Admin Trade Name Freq PRN Reason Stop Dose Admin Sodium Chloride 1,000 mls @ 999 mls/hr 04/30/17 15:27 04/30/17 15:37 Normal Saline IV 04/30/17 16:27 999 mls/hr .BOLUS ONE Administration Morphine Sulfate 1 mg 04/30/17 16:27 04/30/17 16:40 Morphine IVPUSH 04/30/17 16:28 1 mg ONETIME ONE Administration Ondansetron HCl 4 mg 04/30/17 15:28 04/30/17 15:37 Zofran IVPUSH 04/30/17 15:29 4 mg ONETIME ONE Administration Departure - Departure Condition: Good - Problem List Review Problem List Initiated/Reviewed/Updated: Yes - Assessment/Plan Plan: Diagnostics: CBC, CMP, Lipase, UA, UC, HCG Therapeutics: IV NS 1L Bolus x1, Zofran 4 mg IV single dose, Morphine 1 mg IV single dose Assessment: 1. Post-Op Abdominal Pain, improved -improvement of nausea, vomiting and abdominal pain with administration of Zofran & Morphine -no significant abnormalities on exam 2. s/p cholecystectomy Plan: 1. Discussed lab results with patient, provided education and reassurance 2. f/u with general surgery within 1-2 weeks
[2017-04-30] MEDS ORDERED: Sodium Chloride 0.9% 1,000 ML IV ONE (15:27)
[2017-04-30] MEDS ORDERED: Ondansetron 4 MG/2 ML SDV IVPUSH ONE (15:28)
[2017-04-30 15:45] LABS: CHLORIDE,CL 106 mmol/L (98-110); SODIUM,NA 138 mmol/L (136-146)
[2017-04-30] MEDS ORDERED: Morphine 2 MG/ML Syringe IVPUSH ONE (16:27)
== END 2017-04-30 17:18 | disposition home or self-care (01) ==
LOC: MW.ED 14:48
DX: G89.18 Other acute postprocedural pain (principal); R10.13 Epigastric pain; F17.210 Nicotine dependence, cigarettes, uncomplicated; Z88.0 Allergy status to penicillin; Z79.899 Other long term (current) drug therapy; Z90.49 Acquired absence of other specified parts of digestive tract
CPT/HCPCS: 36415; 80053; 81001; 81025; 83690; 85025; 96361; 96374; 96375; 99284; J2270; J2405; J7040; 99283